=== PATIENT | female | born 1970 | race Caucasian/White ===

== ENCOUNTER → 2017-03-20 | Outpatient (CLI) | payer BC ==
--- NOTE | 2017-03-24 10:17 | MM ---
Reason for exam: screening (asymptomatic). Last mammogram was performed 2 years ago. History: Family history of breast cancer in maternal aunt and breast cancer in paternal grandmother. Benign excisional biopsy of the right breast, 1991. Taking hormonal contraceptives for 7 years beginning at age 20. Physical Findings: A clinical breast exam by your physician is recommended on an annual basis and results should be correlated with mammographic findings. MG Screening Mammo w CAD Bilateral CC and MLO view(s) were taken. Prior study comparison: March 12, 2015, bilateral MG 3d screening mammo w/cad. February 17, 2014, bilateral MG screening mammo w CAD. The breast tissue is heterogeneously dense. This may lower the sensitivity of mammography. Finding: There are round, linear arranged calcifications in the upper quadrant, posterior position of the right breast on MLO view. New finding since March 12, 2015 and February 17, 2014. ASSESSMENT: Incomplete: need additional imaging evaluation, BI-RAD 0 RECOMMENDATION: Special view mammogram of the right breast. [facility] will attempt to contact patient to return for supplemental views.
== END | disposition home or self-care (01) ==
LOC: RADMAMWWP 15:07
PROVIDERS: ATTEND Family Medicine
DX: Z12.31 Encounter for screening mammogram for malignant neoplasm of breast (principal)
CPT/HCPCS: 77067

== ENCOUNTER → 2017-04-01 | Outpatient (CLI) | payer BC ==
--- NOTE | 2017-04-02 07:53 | MM ---
Reason for exam: additional evaluation requested from abnormal screening. Last mammogram was performed less than 1 month ago. History: Family history of breast cancer in maternal aunt and breast cancer in paternal grandmother. Benign excisional biopsy of the right breast, 1991. Taking hormonal contraceptives for 7 years beginning at age 20. Physical Findings: Nurse did not find any significant physical abnormalities on exam. MG Work Up Mamm w CAD RT CC and MLO view(s) were taken of the right breast. Prior study comparison: March 20, 2017, bilateral MG screening mammo w CAD. March 12, 2015, bilateral MG 3d screening mammo w/cad. Finding: There are typically benign round, grouped/clustered calcifications in the upper outer quadrant, posterior position of the right breast not significantly changed from 03/02/17. ASSESSMENT: Probably benign, BI-RAD 3 RECOMMENDATION: Follow-up diagnostic mammogram of the right breast in 6 months.
== END | disposition home or self-care (01) ==
LOC: RADMAMWWP 15:31
PROVIDERS: ATTEND Family Medicine
DX: R92.8 Other abnormal and inconclusive findings on diagnostic imaging of breast (principal); Z80.3 Family history of malignant neoplasm of breast
CPT/HCPCS: 77065

== ENCOUNTER 2017-09-10 23:36 | Emergency (ER) | payer BC ==
[2017-09-11] MEDS ORDERED: AMOXIC-POT CLAV 875MG STARTER 2 EACH TABLET ONE (00:27)
--- NOTE | 2017-09-16 02:27 | CDI ---
Documentation Clarification OP Dear Homer Mcfarland, PAC Please provide clinical impression. Thank you, Jackelyn Schafer Machine Rug Cleaner If you have any questions, please contact Core Analyst at [phone] DX: dog bite MTDD
== END 2017-09-11 00:35 | disposition home or self-care (01) ==
LOC: EC 23:36
DX: S61.452A Open bite of left hand, initial encounter (principal); F17.200 Nicotine dependence, unspecified, uncomplicated; Z88.2 Allergy status to sulfonamides; W54.0XXA Bitten by dog, initial encounter
CPT/HCPCS: 99283

== ENCOUNTER 2017-10-23 10:59 | Emergency (ER) | payer BC ==
[2017-10-23 11:04] VITALS: BP 123/70; PULSE 95; RESP 18; TEMP 98.5
--- NOTE | 2017-10-23 11:15 | ED ---
Skin/Abscess/FB HPI - General Chief complaint: Skin/Abscess/Foreign Body Stated complaint: boil on groin Time Seen by Provider: 10/23/17 11:05 Source: patient Mode of arrival: ambulatory Limitations: no limitations - History of Present Illness Initial comments: Is a 47-year-old female who presents here department for a right inguinal abscess. She states it started a couple of days ago. She states that she did have a similar episode in February 2017.. She was told by Dr. Thomas that she may have a mild case of hidradenitis or purpura. She states that she called his office today and was instructed to come to the emergency department to have Dr. Thomas paged so that he could evaluate her. The patient denies any fevers or chills. No drainage from the wound. Denies any other acute complaints. - Related Data Home Medications Medication Instructions Recorded Confirmed Albuterol Inhaler [Ventolin Hfa 1 - 2 puff INHALATION RT-Q6H PRN 10/23/17 Inhaler] Aspirin/Acetaminophen/Caffeine 1 tab PO Q6H PRN 10/23/17 10/23/17 [Excedrin Migraine Caplet] Eye Lubricant Combination No.1 1 applic BOTH EYES DAILY PRN 10/23/17 10/23/17 [Freshkote] Fexofenadine/Pseudoephedrine 600 mg PO DAILY PRN 10/23/17 10/23/17 [Danyelle-D 12 Hour Tablet] Ibuprofen [Advil] 600 - 800 mg PO Q6HR PRN 10/23/17 10/23/17 Multivitamins, Thera [Multivitamin 1 tab PO DAILY 10/23/17 10/23/17 (formulary)] buPROPion HCL [Wellbutrin XL] 150 mg PO BID 10/23/17 10/23/17 Previous Rx's Medication Instructions Recorded Clindamycin HCl 600 mg PO TID #42 cap 10/23/17 Allergies Allergy/AdvReac Type Severity Reaction Status Date / Time Sulfa (Sulfonamide Allergy Unknown Verified 10/23/17 11:15 Antibiotics) Childhood gluten AdvReac Nausea & Verified 10/23/17 11:15 Vomiting & Diarrhea Review of Systems ROS Statement: Those systems with pertinent positive or pertinent negative responses have been documented in the HPI. ROS Other: All systems not noted in ROS Statement are negative. Past Medical History Additional Past Medical History / Comment(s): enometriosis History of Any Multi-Drug Resistant Organisms: None Reported Additional Past Surgical History / Comment(s): lump removed from right breast, laproscopy surgery Past Psychological History: Anxiety Smoking Status: Current every day smoker Past Alcohol Use History: Occasional Past Drug Use History: None Reported General Exam - General Exam Comments Initial Comments: Constitutional: Awake alert Appears comfortable Head: Normocephalic atraumatic Eyes: no conjunctival injection No scleral icterus EOMI Neck: No JVD Supple Heart: Regular rate rhythm normal S1-S2 no murmurs Lungs: Clear to auscultation bilaterally No wheezing No rales Abdomen: Soft nondistended nontender Skin: There is a 1-2 cm abscess over the right lateral mons pubis area. There is no open tract or draining. There is fluctuance at the center and surrounding erythema with mild induration. There is tenderness to palpation over this area. Extremities: Non edematous DP pulses intact Radial pulses intact Neuro: A&Ox3 No focal neurologic deficits Psych: Appropriate mood and affect Limitations: no limitations Course Vital Signs 10/23/17 11:00 Temperature 98.5 F Pulse Rate 95 Respiratory 18 Rate Blood Pressure 123/70 O2 Sat by Pulse 95 Oximetry - Reevaluation(s) Reevaluation #1: 10/23/17 11:[address] Thomas about the patient and he stated that he would prefer me to perform the incision and drainage because he is currently busy in the OR. Procedures - Incision & Drainage Consent Obtained: verbal consent Indication: abscess Site: other Size (cm): 2 (R inguinal) Amount (mLs): 3 I&D Cleaning Method: Chloroprep Sterile Field Used?: Yes Scalpel Used: #11 Needle Aspiration Performed?: No Irrigation Performed?: No I&D Drainage Obtained: Pus, Blood Packing: Iodoform Culture Obtained?: Yes Patient Tolerated Procedure: well Medical Decision Making - Medical Decision Making This is a 47-year-old female who presents emergency department for an abscess. Incision and drainage was performed at bedside and wound cultures were sent. The patient tolerated the procedure well. She will be placed on clindamycin for 7 days. Told to follow-up with Dr. Thomas in his office. Can return for any worsening or changing symptoms. All questions answered. Disposition Clinical Impression: Abscess Disposition: HOME SELF-CARE Condition: Stable Instructions: Abscess Incision and Drainage (ED), Abscess (ED) Prescriptions: Clindamycin HCl 600 mg PO TID #42 cap Is patient prescribed a controlled substance at d/c from ED?: No Referrals: Lesvia Correa MD [Primary Care Provider] - 1-2 days Ervin Correa MD [Medical Doctor] - 1-2 days
[2017-10-23] MEDS ORDERED: LIDOCAINE 1% INJ 10MG/ML (20 ML MDV) SQ ONE (11:20)
== END 2017-10-23 11:54 | disposition home or self-care (01) ==
LOC: EC 10:59
DX: L02.214 Cutaneous abscess of groin (principal); F41.9 Anxiety disorder, unspecified; F17.200 Nicotine dependence, unspecified, uncomplicated; Z79.899 Other long term (current) drug therapy; Z88.2 Allergy status to sulfonamides; Z91.048 Other nonmedicinal substance allergy status
CPT/HCPCS: 87070; 87205; 99283; 10060; J2001

== ENCOUNTER → 2018-10-29 | Outpatient (CLI) | payer BC ==
--- NOTE | 2018-10-29 11:54 | MM ---
Reason for exam: additional evaluation requested from prior study. Last mammogram was performed 1 year and 7 months ago. History: Family history of breast cancer in maternal aunt and breast cancer in paternal grandmother. Benign excisional biopsy of the right breast, 1991. Taking hormonal contraceptives for 7 years beginning at age 20. Physical Findings: Nurse did not find any significant physical abnormalities on exam. MG 3D Diag Mammo W/Cad FRANCISCO JAVIER Bilateral CC and MLO view(s) were taken. Prior study comparison: April 01, 2017, right breast MG work up mamm w CAD RT. March 20, 2017, bilateral MG screening mammo w CAD. The breast tissue is heterogeneously dense. This may lower the sensitivity of mammography. Left upper outer quadrant posterior depth calcifications are stable from 2018 and probably benign. 1 year follow up diagnostic will establish 2 years of stability. Right upper outer quadrant far posterior depth 4mm mass stable back to 2016. These results were verbally communicated with the patient and result sheet given to the patient on 10/29/18. ASSESSMENT: Probably benign, BI-RAD 3 RECOMMENDATION: Follow-up diagnostic mammogram of both breasts in 1 year.
== END | disposition home or self-care (01) ==
LOC: RADMAMWWP 09:50
PROVIDERS: ATTEND Family Medicine
DX: R92.8 Other abnormal and inconclusive findings on diagnostic imaging of breast (principal)
CPT/HCPCS: 77062; 77066

== ENCOUNTER → 2019-12-14 | Outpatient (CLI) | payer BC ==
--- NOTE | 2019-12-19 14:39 | MM ---
Reason for exam: additional evaluation requested from prior study. Last mammogram was performed 1 year and 1 month ago. History: Family history of breast cancer in maternal aunt and breast cancer in paternal grandmother. Benign excisional biopsy of the right breast, 1991. Taking hormonal contraceptives for 7 years beginning at age 20. Physical Findings: Nurse did not find any significant physical abnormalities on exam. MG 3D Diag Mammo W/Cad FRANCISCO JAVIER Bilateral CC and MLO view(s) were taken. LM, CC with magnification, and LM with magnification view(s) were taken of the right breast. Prior study comparison: October 29, 2018, bilateral MG 3d diag mammo w/cad FRANCISCO JAVIER. April 01, 2017, right breast MG work up mamm w CAD RT. The breast tissue is heterogeneously dense. This may lower the sensitivity of mammography. Finding: There are grouped/clustered calcifications in the upper outer quadrant, posterior position of the right breast 9.6cm from the nipple. Increase in number of calcifications since October 29, 2018 and April 01, 2017. These results were verbally communicated with the patient and result sheet given to the patient on 12/14/19. ASSESSMENT: Suspicious, BI-RAD 4 RECOMMENDATION: Stereotactic core biopsy of the right breast. Called Dr. Lesvia Correa's office with mammographic findings and has scheduled an appointment for the patient for 01/18/20 at 4:[address] Correa. Biopsy scheduled for 12/26/19 at 7:00. PRELIMINARY REPORT CALLED AND FAXED TO DR. CORREA ON 12/19/19.
== END | disposition home or self-care (01) ==
LOC: RADMAMWWP 11:02
PROVIDERS: ATTEND Family Medicine
DX: R92.8 Other abnormal and inconclusive findings on diagnostic imaging of breast (principal)
CPT/HCPCS: 77062; 77066

== ENCOUNTER → 2019-12-26 | Day surgery (SDC) | payer BC ==
[2019-12-26 07:26] VITALS: RESP 16; TEMP 98.1
[2019-12-26 08:59] VITALS: BP 122/82; PULSE 71
--- NOTE | 2019-12-26 09:12 | MM ---
EXAMINATION TYPE: MG stereo VAD BX RT DATE OF EXAM: 12/26/2019 COMPARISON: Prior mammogram December 14, 2019 and older mammograms. CLINICAL HISTORY: Abnormal mammogram TECHNIQUE: Stereotactic guided core biopsy of right breast. FINDINGS: The procedure of stereotactic guided core biopsy was explained to the patient. Benefits, a lternatives, and risks were discussed. An informed consent was then obtained. The [facility] pathway for biopsy was chosen. Shortness pathway was lateral approach. I performed the localization then performed the remainder of the procedure. Overlying skin is cleansed with Betadine . Lidocaine is used as a metastatic into the skin and subcutaneous tissue. Lidocaine with epinephrine is used as anesthetic into the deeper tissue up to area of concern and during sampling. A vacuum ass isted biopsy gun was used to obtain multiple core samples. The patient tolerated the procedure well without any immediate complication. The patient was kept in the radiology department for short stay after the procedure and then discharged home in stable condi tion. Targeted calcifications are identified in specimen mammogram. Post biopsy mammogram shows the clip to appear in satisfactory position relative to the targeted area of concern on the preprocedure images. No residual calcifications are identified. IMPRESSION: SUCCESSFUL, UNCOMPLICATED STEREOTACTIC GUIDED CORE BIOPSY OF AREA OF CONCERN IN THE RIGHT BREAST, FUL L PATHOLOGY RESULTS TO FOLLOW. Intermediate index of suspicion noted at time of procedure.
== END ==
LOC: RADMAMWWP 07:05
PROVIDERS: ATTEND Surgery
DX: N60.11 Diffuse cystic mastopathy of right breast (principal); R89.7 Abnormal histological findings in specimens from other organs, systems and tissues; Z85.3 Personal history of malignant neoplasm of breast; Z98.890 Other specified postprocedural states; Z98.82 Breast implant status; Z88.2 Allergy status to sulfonamides; Z88.5 Allergy status to narcotic agent; Z80.3 Family history of malignant neoplasm of breast
CPT/HCPCS: 88305; 19081; A4648; J2001

== ENCOUNTER 2020-03-10 14:39 | Emergency (ER) | payer BC ==
[2020-03-10 14:43] VITALS: TEMP 98.3
[2020-03-10] MEDS ORDERED: KETOROLAC 15 MG/ML 1 ML VIAL IVP STA (15:06)
[2020-03-10] MEDS ORDERED: SODIUM CHLORIDE 0.9% 1,000 ML IV STA (15:06)
[2020-03-10] MEDS ORDERED: PANTOPRAZOLE 40 MG/10 ML VIAL IVP STA (15:06)
--- NOTE | 2020-03-10 15:19 | ED ---
Abdominal Pain HPI - General Chief Complaint: Abdominal Pain Stated Complaint: R Side Abd Pain Time Seen by Provider: 03/10/20 14:45 Source: patient Mode of arrival: ambulatory Limitations: no limitations - History of Present Illness Initial Comments: Patient is a 50-year-old female presenting to the emergency Department with complaints of right upper quadrant pain 3 days. Patient states she noticed the pain about 3 days ago, it was intermittent. Patient states throughout the day it seemed to go away, the next day and into today the pain has been continuous. She states she does have some radiation of the pain to the epigastric and sometimes the left upper quadrant as well. She does admit to some mild nausea 2 days ago, no vomiting, no diarrhea. No nause today. She admits to history of 2 laparoscopies for endometriosis, no other abdominal surgeries. She denies any fever or chills, no chest pain or shortness of breath. She has no further complaints at this time. Upon arrival to the ER, her vital signs are stable. - Related Data Home Medications Medication Instructions Recorded Confirmed Fexofenadine/Pseudoephedrine 600 mg PO DAILY PRN 10/23/17 12/26/19 [Danyelle-D 12 Hour Tablet] Terbinafine [LamISIL] 250 mg PO DAILY 12/16/19 12/26/19 Balance Estrogen Vitamin 2 tab PO DAILY 03/10/20 03/10/20 Beef Thyroid Vitamin 1 tab PO DAILY 03/10/20 03/10/20 Bovine Adrenal Vitamin 2 tab PO DAILY 03/10/20 03/10/20 Previous Rx's Medication Instructions Recorded Dicyclomine [Bentyl] 20 mg PO TID #20 tablet 03/10/20 Allergies Allergy/AdvReac Type Severity Reaction Status Date / Time Sulfa (Sulfonamide Allergy Unknown Verified 03/10/20 16:41 Antibiotics) Childhood gluten AdvReac Nausea & Verified 03/10/20 16:41 Vomiting & Diarrhea hydrocodone [From Vicodin] AdvReac Nausea Verified 03/10/20 16:41 morphine AdvReac Nausea Verified 03/10/20 16:41 Review of Systems ROS Statement: Those systems with pertinent positive or pertinent negative responses have been documented in the HPI. ROS Other: All systems not noted in ROS Statement are negative. Past Medical History Additional Past Medical History / Comment(s): endometriosis History of Any Multi-Drug Resistant Organisms: None Reported Past Surgical History: Breast Surgery Additional Past Surgical History / Comment(s): benign excisional biopsy right breast 1992, laproscopy surgery Past Anesthesia/Blood Transfusion Reactions: Previous Problems w/ Anesthesia Additional Past Anesthesia/Blood Transfusion Reaction / Comment(s): "Hard time waking up" after breast excisional biopsy 1991 Past Psychological History: Anxiety, Depression Smoking Status: Current every day smoker Past Alcohol Use History: Occasional Past Drug Use History: None Reported General Exam - General Exam Comments Initial Comments: GENERAL: Patient is well-developed and well-nourished. Patient is nontoxic and in no acute distress. HEAD: Atraumatic, normocephalic. EYES: Pupils equal round and reactive to light, extraocular movements intact, sclera anicteric, conjunctiva are normal. Eyelids were unremarkable. ENT: TMs normal, nares patent, oropharynx clear without exudates. Moist mucous membranes. NECK: Normal range of motion, supple without lymphadenopathy or JVD. LUNGS: Unlabored respirations. Breath sounds clear to auscultation bilaterally and equal. No wheezes rales or rhonchi. HEART: Regular rate and rhythm without murmurs, rubs or gallops. ABDOMEN: Tender to palpation epigastric and right upper quadrant. Soft, normoactive bowel sounds. No guarding, no rebound. No masses appreciated. : Deferred MUSCULOSKELETAL: Normal extremities with adequate strength and normal range of motion, no pitting or edema. No clubbing or cyanosis. NEUROLOGICAL: Patient is alert and oriented x 3. Motor and sensory are also intact. Cranial nerves II through XII grossly intact. Symmetrical smile. Normal speech, normal gait. PSYCH: Normal mood, normal affect. SKIN: Warm, Dry, normal turgor, no rashes or lesions noted. Limitations: no limitations Course Vital Signs 03/10/20 03/10/20 14:40 16:40 Temperature 98.3 F Pulse Rate 69 71 Respiratory 20 18 Rate Blood Pressure 121/75 132/83 O2 Sat by Pulse 96 98 Oximetry Medical Decision Making - Medical Decision Making Patient is a 50-year-old female here for right upper quadrant pain 3 days. Positive nausea, no vomiting, no fevers, no diarrhea. History of 2 laparoscopies for endometriosis, no other abdominal surgeries. Her vital signs are stable. She denies any chest pain or shortness of breath. Labs show a very slight white count at 13.1, rest of labs are unremarkable, normal lactate, normal bilirubin. Her urine shows no evidence of infection. Ultrasound of the gallbladder shows no stones present, no dilation of the CBD, right kidney is normal. The liver does have a lesion consistent with a benign cyst and a hemangioma. I did recommend the patient to have an EKG however patient declined stating that she does not have chest pain and no heart issues. Patient was given some fluids and Toradol resting comfortably in the ER. I discussed these findings with her. Patient states she has seen Dr. Correa in the past and I did recommend follow-up with him if her symptoms persist. Her symptoms are most likely related to biliary colic. Patient states her pain does seem to increase after she is eating. She is stable for discharge at this time. Patient is in agreement with this plan of care. Return parameters were discussed with the patient she verbalizes understanding. Case discussed with Dr. Hadley. - Lab Data Result diagrams: 03/10/20 15:30 03/10/20 15:30 Lab Results 03/10/20 03/10/20 03/10/20 Range/Units 15:30 15:30 15:30 WBC 13.1 H (3.8-10.6) k/uL RBC 4.79 (3.80-5.40) m/uL Hgb 14.7 (11.4-16.0) gm/dL Hct 43.3 (34.0-46.0) % MCV 90.4 (80.0-100.0) fL MCH 30.6 (25.0-35.0) pg MCHC 33.9 (31.0-37.0) g/dL RDW 12.5 (11.5-15.5) % Plt Count 302 (150-450) k/uL MPV 7.2 Neutrophils % 82 % Lymphocytes % 10 % Monocytes % 5 % Eosinophils % 1 % Basophils % 1 % Neutrophils # 10.8 H (1.3-7.7) k/uL Lymphocytes # 1.3 (1.0-4.8) k/uL Monocytes # 0.7 (0-1.0) k/uL Eosinophils # 0.1 (0-0.7) k/uL Basophils # 0.1 (0-0.2) k/uL PT 10.5 (9.0-12.0) sec INR 1.0 (<1.2) APTT 22.8 (22.0-30.0) sec Sodium (137-145) mmol/L Potassium (3.5-5.1) mmol/L Chloride (98-107) mmol/L Carbon Dioxide (22-30) mmol/L Anion Gap mmol/L BUN (7-17) mg/dL Creatinine (0.52-1.04) mg/dL Est GFR (CKD-EPI)AfAm (>60 ml/min/1.73 sqM) Est GFR (CKD-EPI)NonAf (>60 ml/min/1.73 sqM) Glucose (74-99) mg/dL Plasma Lactic Acid Luciano (0.7-2.0) mmol/L Calcium (8.4-10.2) mg/dL Total Bilirubin (0.2-1.3) mg/dL AST (14-36) U/L ALT (4-34) U/L Alkaline Phosphatase (38-126) U/L Total Protein (6.3-8.2) g/dL Albumin (3.5-5.0) g/dL Amylase (30-110) U/L Lipase (23-300) U/L Urine Color Yellow Urine Appearance Clear (Clear) Urine pH 5.5 (5.0-8.0) Ur Specific [place] 1.030 (1.001-1.035) Urine Protein Trace H (Negative) Urine Glucose (UA) Negative (Negative) Urine Ketones Negative (Negative) Urine Blood Negative (Negative) Urine Nitrite Negative (Negative) Urine Bilirubin Negative (Negative) Urine Urobilinogen 2.0 (<2.0) mg/dL Ur Leukocyte Esterase Negative (Negative) Urine HCG, Qual (Not Detectd) 03/10/20 03/10/20 03/10/20 Range/Units 15:30 15:30 15:30 WBC (3.8-10.6) k/uL RBC (3.80-5.40) m/uL Hgb (11.4-16.0) gm/dL Hct (34.0-46.0) % MCV (80.0-100.0) fL MCH (25.0-35.0) pg MCHC (31.0-37.0) g/dL RDW (11.5-15.5) % Plt Count (150-450) k/uL MPV Neutrophils % % Lymphocytes % % Monocytes % % Eosinophils % % Basophils % % Neutrophils # (1.3-7.7) k/uL Lymphocytes # (1.0-4.8) k/uL Monocytes # (0-1.0) k/uL Eosinophils # (0-0.7) k/uL Basophils # (0-0.2) k/uL PT (9.0-12.0) sec INR (<1.2) APTT (22.0-30.0) sec Sodium 137 (137-145) mmol/L Potassium 4.6 (3.5-5.1) mmol/L Chloride 106 (98-107) mmol/L Carbon Dioxide 25 (22-30) mmol/L Anion Gap 6 mmol/L BUN 18 H (7-17) mg/dL Creatinine 0.61 (0.52-1.04) mg/dL Est GFR (CKD-EPI)AfAm >90 (>60 ml/min/1.73 sqM) Est GFR (CKD-EPI)NonAf >90 (>60 ml/min/1.73 sqM) Glucose 116 H (74-99) mg/dL Plasma Lactic Acid Luciano 0.8 (0.7-2.0) mmol/L Calcium 9.3 (8.4-10.2) mg/dL Total Bilirubin 0.3 (0.2-1.3) mg/dL AST 23 (14-36) U/L ALT 18 (4-34) U/L Alkaline Phosphatase 65 (38-126) U/L Total Protein 6.7 (6.3-8.2) g/dL Albumin 4.1 (3.5-5.0) g/dL Amylase 61 (30-110) U/L Lipase 65 (23-300) U/L Urine Color Urine Appearance (Clear) Urine pH (5.0-8.0) Ur Specific [place] (1.001-1.035) Urine Protein (Negative) Urine Glucose (UA) (Negative) Urine Ketones (Negative) Urine Blood (Negative) Urine Nitrite (Negative) Urine Bilirubin (Negative) Urine Urobilinogen (<2.0) mg/dL Ur Leukocyte Esterase (Negative) Urine HCG, Qual Not Detected (Not Detectd) Disposition Clinical Impression: Right upper quadrant abdominal pain, Biliary colic Disposition: HOME SELF-CARE Condition: Stable Instructions (If sedation given, give patient instructions): Abdominal Pain (ED) Additional Instructions: Please return to the Emergency Department if symptoms worsen or any other concerns. Trial of Bentyl for spasms. Drink plenty of water, limit fatty foods. Follow up with your surgeon or regular doctor as discussed. Prescriptions: Dicyclomine [Bentyl] 20 mg PO TID #20 tablet Is patient prescribed a controlled substance at d/c from ED?: No Referrals: Lesvia Correa MD [Primary Care Provider] - 1-2 days Ervin Correa MD [Medical Doctor] - 1-2 days
[2020-03-10 15:35] LABS: Basophils # (A) 0.1 k/uL (0-0.2); Basophils % (A) 1 %; Eosinophils # (A) 0.1 k/uL (0-0.7); Eosinophils % (A) 1 %; HCT 43.3 % (34.0-46.0); HGB 14.7 gm/dL (11.4-16.0); Lymphocytes # (A) 1.3 k/uL (1.0-4.8); Lymphocytes % (A) 10 %; MCH 30.6 pg (25.0-35.0); MCHC 33.9 g/dL (31.0-37.0); MCV 90.4 fL (80.0-100.0); Mean Platelet Volume 7.2; Monocytes # (A) 0.7 k/uL (0-1.0); Monocytes % (A) 5 %; Neutrophils # (A) 10.8 k/uL (1.3-7.7); Neutrophils % (A) 82 %; Platelet Count 302 k/uL (150-450); RBC 4.79 m/uL (3.80-5.40); RDW 12.5 % (11.5-15.5); WBC 13.1 k/uL (3.8-10.6)
[2020-03-10 15:43] LABS: Appearance,Urine Clear (Clear); Bilirubin,Urine Negative (Negative); Blood,Urine Negative (Negative); Color,Urine Yellow; Glucose,Urine (UA) Negative (Negative); Ketones,Urine Negative (Negative); Leukocyte Esterase,Urine Negative (Negative); Nitrite,Urine Negative (Negative); PH, Urine 5.5 (5.0-8.0); Protein,Urine Trace (Negative)
[2020-03-10 15:47] LABS: ALT 18 U/L (4-34); AST 23 U/L (14-36); African American GFR (CKD) >90 (>60 ml/min/1.73 sqM); Albumin 4.1 g/dL (3.5-5.0); Alkaline Phosphatase 65 U/L (38-126); Amylase 61 U/L (30-110); Anion Gap 6 mmol/L; Blood Urea Nitrogen 18 mg/dL (7-17); Calcium 9.3 mg/dL (8.4-10.2); Carbon Dioxide 25 mmol/L (22-30); Chloride 106 mmol/L (98-107); Glucose 116 mg/dL (74-99); Lipase 65 U/L (23-300); Non-African American GFR(CKD) >90 (>60 ml/min/1.73 sqM); Potassium 4.6 mmol/L (3.5-5.1); Sodium 137 mmol/L (137-145); Total Bilirubin 0.3 mg/dL (0.2-1.3); Total Protein 6.7 g/dL (6.3-8.2)
[2020-03-10 15:48] LABS: Partial Thromboplastin Time 22.8 sec (22.0-30.0); Prothrombin Time 10.5 sec (9.0-12.0)
--- NOTE | 2020-03-10 16:10 | US ---
EXAMINATION TYPE: US gallbladder DATE OF EXAM: 03/10/2020 COMPARISON: NONE CLINICAL HISTORY: RUQ pain x 3 days. EXAM MEASUREMENTS: Liver Length: 10.0 cm Gallbladder Wall: 0.3 cm CBD: 0.6 cm Right Kidney: 9.4 x 4.8 x 4.6 cm Pancreas: visualized portions wnl Liver: bi lobed cyst measures 2.4 x 1.9 x 1.9 cm, and echogenic non vascular lesion measuring 1.7 x 1.3 x 1.6 cm Gallbladder: No stones seen Evidence for sonographic Rodrigues's sign: No CBD: measures 0.6 cm Right Kidney: No hydronephrosis or masses seen IMPRESSION: No acute abnormality. Hepatic lesions, compatible with benign cyst and hemangioma. Confirmation with CT or MRI may be obtai calvin as clinically indicated.
[2020-03-10 16:42] VITALS: BP 132/83; PULSE 71; RESP 18
== END 2020-03-10 16:43 | disposition home or self-care (01) ==
LOC: EC 14:39
DX: K80.50 Calculus of bile duct without cholangitis or cholecystitis without obstruction (principal); F17.200 Nicotine dependence, unspecified, uncomplicated; Z88.2 Allergy status to sulfonamides; Z88.5 Allergy status to narcotic agent; Z91.048 Other nonmedicinal substance allergy status
CPT/HCPCS: 36415; 80053; 82150; 83605; 83690; 85025; 85610; 85730; 81003; 81025; 76705; 99284; 96374; 96375; 96361; J1885; C9113

== ENCOUNTER → 2020-06-25 | Outpatient (CLI) | payer BC ==
--- NOTE | 2020-06-25 12:14 | MM ---
Reason for exam: follow-up at short interval from prior study. Last mammogram was performed 6 months ago. History: Family history of breast cancer in maternal aunt and breast cancer in paternal grandmother. Benign MG stereo VAD BX RT of the right breast, December 26, 2019. Benign excisional biopsy of the right breast, 1991. Taking hormonal contraceptives for 7 years beginning at age 20. Physical Findings: Nurse did not find any significant physical abnormalities on exam. MG 3D Diag Mammo W/Cad RT CC and MLO view(s) were taken of the right breast. Prior study comparison: December 14, 2019, bilateral MG 3d diag mammo w/cad FRANCISCO JAVIER. October 29, 2018, bilateral MG 3d diag mammo w/cad FRANCISCO JAVIER. The breast tissue is heterogeneously dense. This may lower the sensitivity of mammography. Previous mammotome biopsy in the right breast. These results were verbally communicated with the patient and result sheet given to the patient on 06/25/20. ASSESSMENT: Benign, BI-RAD 2 RECOMMENDATION: Routine screening mammogram of both breasts in 6 months. Back on schedule for November 2020.
== END | disposition home or self-care (01) ==
LOC: RADMAMWWP 10:30
PROVIDERS: ATTEND Surgery
DX: R92.2 Inconclusive mammogram (principal)
CPT/HCPCS: 77061; 77065

== ENCOUNTER → 2020-12-14 | Outpatient (CLI) | payer BC ==
--- NOTE | 2020-12-17 08:58 | MM ---
Reason for exam: screening (asymptomatic). Last mammogram was performed 6 months ago. History: Patient is postmenopausal. Family history of breast cancer in maternal aunt and breast cancer in paternal grandmother. Benign MG stereo VAD BX RT of the right breast, December 26, 2019. Benign excisional biopsy of the right breast, 1991. Taking hormonal contraceptives for 7 years beginning at age 20. Physical Findings: A clinical breast exam by your physician is recommended on an annual basis and results should be correlated with mammographic findings. MG 3D Screening Mammo W/Cad Bilateral CC and MLO view(s) were taken. Prior study comparison: June 25, 2020, right breast MG 3d diag mammo w/cad RT. December 14, 2019, bilateral MG 3d diag mammo w/cad FRANCISCO JAVIER. The breast tissue is heterogeneously dense. This may lower the sensitivity of mammography. Focal asymmetry upper outer left breast. This finding is changed when compared with previous exams. ASSESSMENT: Incomplete: need additional imaging evaluation, BI-RAD 0 RECOMMENDATION: Special view mammogram of the left breast. If lesion persists on supplemental views, image directed ultrasound is recommended. [facility] will attempt to contact patient to return for supplemental views and ultrasound if indicated.
== END | disposition home or self-care (01) ==
LOC: RADMAMWWP 09:39
PROVIDERS: ATTEND Surgery
DX: Z12.31 Encounter for screening mammogram for malignant neoplasm of breast (principal)
CPT/HCPCS: 77063; 77067

== ENCOUNTER → 2020-12-26 | Outpatient (CLI) | payer BC ==
--- NOTE | 2020-12-27 10:28 | MM ---
Reason for exam: additional evaluation requested from abnormal screening. Last mammogram was performed less than 1 month ago. History: Patient is postmenopausal. Family history of breast cancer in maternal aunt and breast cancer in paternal grandmother. Benign MG stereo VAD BX RT of the right breast, December 26, 2019. Benign excisional biopsy of the right breast, 1991. Taking hormonal contraceptives for 7 years beginning at age 20. Physical Findings: Nurse did not find any significant physical abnormalities on exam. MG 3D Work Up W/Cad LT Spot compression CC, spot compression MLO, and ML view(s) were taken of the left breast. Prior study comparison: December 14, 2020, bilateral MG 3d screening mammo w/cad. June 25, 2020, right breast MG 3d diag mammo w/cad RT. December 14, 2019, bilateral MG 3d diag mammo w/cad FRANCISCO JAVIER. October 29, 2018, bilateral MG 3d diag mammo w/cad FRANCISCO JAVIER. The breast tissue is heterogeneously dense. This may lower the sensitivity of mammography. The superior asymmetric density disperses on additional views. Given the appearance on screening, a precautionary 6 month follow up is recommended. These results were verbally communicated with the patient and result sheet given to the patient on 12/26/20. ASSESSMENT: Probably benign, BI-RAD 3 RECOMMENDATION: Follow-up diagnostic mammogram of the left breast in 6 months.
== END | disposition home or self-care (01) ==
LOC: RADMAMWWP 15:39
PROVIDERS: ATTEND Surgery
DX: R92.8 Other abnormal and inconclusive findings on diagnostic imaging of breast (principal)
CPT/HCPCS: 77061; 77065

== ENCOUNTER 2021-02-12 23:49 | Emergency (ER) | payer BC ==
[2021-02-13] MEDS ORDERED: ASPIRIN 81 MG PO STA (00:05)
[2021-02-13 00:07] VITALS: TEMP 98.2
--- NOTE | 2021-02-13 00:09 | ED ---
General Adult HPI - General Stated complaint: Chest Pain Time Seen by Provider: 02/13/21 00:03 - History of Present Illness Initial comments: 51 year-old female patient presents to the emergency department for evaluation of central chest pain. States it is pinching/burning sensation. Denies radiation to back or jaw. Denies any nausea, vomiting, and sweating. States she had two previous episodes about 1-2 weeks ago. Denies history of cardiac disease. Denies history of smoking. Family history of CAD in mother and grandmother. She does smoke cigarettes. - Related Data Home Medications Medication Instructions Recorded Confirmed Fexofenadine/Pseudoephedrine 600 mg PO BID PRN 10/23/17 03/10/20 [Danyelle-D 12 Hour Tablet] Terbinafine [LamISIL] 250 mg PO HS 12/16/19 03/10/20 Balance Estrogen Vitamin 2 tab PO DAILY 03/10/20 03/10/20 Beef Thyroid Vitamin 1 tab PO DAILY 03/10/20 03/10/20 Bovine Adrenal Vitamin 2 tab PO DAILY 03/10/20 03/10/20 Previous Rx's Medication Instructions Recorded Dicyclomine [Bentyl] 20 mg PO TID #20 tablet 03/10/20 Allergies Allergy/AdvReac Type Severity Reaction Status Date / Time Sulfa (Sulfonamide Allergy Unknown Verified 02/13/21 00:06 Antibiotics) Childhood gluten AdvReac Nausea & Verified 02/13/21 00:06 Vomiting & Diarrhea hydrocodone [From Vicodin] AdvReac Nausea Verified 02/13/21 00:06 morphine AdvReac Nausea Verified 02/13/21 00:06 Review of Systems ROS Statement: Those systems with pertinent positive or pertinent negative responses have been documented in the HPI. ROS Other: All systems not noted in ROS Statement are negative. Past Medical History Additional Past Medical History / Comment(s): endometriosis History of Any Multi-Drug Resistant Organisms: None Reported Past Surgical History: Breast Surgery Additional Past Surgical History / Comment(s): benign excisional biopsy right breast 1991, laproscopy surgery Past Anesthesia/Blood Transfusion Reactions: Previous Problems w/ Anesthesia Additional Past Anesthesia/Blood Transfusion Reaction / Comment(s): "Hard time waking up" after breast excisional biopsy 1991 Past Psychological History: Anxiety, Depression Smoking Status: Current every day smoker Past Alcohol Use History: Occasional Past Drug Use History: None Reported General Exam General appearance: alert, in no apparent distress, other (This is a well developed, well nourished adult female in no acute distress. ) Eye exam: Present: normal appearance, PERRL, EOMI. Absent: scleral icterus, conjunctival injection, periorbital swelling ENT exam: Present: normal exam, normal oropharynx, mucous membranes moist Respiratory exam: Present: normal lung sounds bilaterally. Absent: respiratory distress, wheezes, rales, rhonchi, stridor Cardiovascular Exam: Present: regular rate, normal rhythm, normal heart sounds. Absent: systolic murmur, diastolic murmur, rubs, gallop, clicks GI/Abdominal exam: Present: soft, normal bowel sounds. Absent: distended, tenderness, guarding, rebound, rigid Neurological exam: Present: alert, oriented X3, CN II-XII intact Psychiatric exam: Present: normal affect, normal mood Skin exam: Present: warm, dry, intact, normal color. Absent: rash Course Vital Signs 02/13/21 02/13/21 00:02 04:53 Temperature 98.2 F Pulse Rate 73 71 Respiratory 18 16 Rate Blood Pressure 144/73 116/80 O2 Sat by Pulse 99 100 Oximetry EKG Findings - EKG Comments: EKG Findings:: UG obtained at 00 13 shows normal sinus rhythm with a ventricular rate of 86, [place] interval 136, QRS duration 74, QT 372, QTc 445. No evidence of ST elevation or depression. Medical Decision Making - Medical Decision Making 51 year-old female patient presents for chest pain that started about 30 minutes prior to arrival. Physical exam unremarkable. EKG showed sinus rhythm. Labs normal. Repeat trop is normal. Discharge follow up with the primary care physician for recheck in 1-2 days. Return parameters were discussed in detail. She verbalizes understanding and agrees with this plan. My attending is Dr. Colmenares. - Lab Data Result diagrams: 02/13/21 00:50 02/13/21 00:50 Lab Results 02/13/21 02/13/21 02/13/21 Range/Units 00:50 00:50 00:50 WBC 12.8 H (3.8-10.6) k/uL RBC 4.66 (3.80-5.40) m/uL Hgb 14.3 (11.4-16.0) gm/dL Hct 43.5 (34.0-46.0) % MCV 93.3 (80.0-100.0) fL MCH 30.6 (25.0-35.0) pg MCHC 32.8 (31.0-37.0) g/dL RDW 12.3 (11.5-15.5) % Plt Count 353 (150-450) k/uL MPV 8.0 Neutrophils % 71 % Lymphocytes % 19 % Monocytes % 6 % Eosinophils % 2 % Basophils % 1 % Neutrophils # 9.1 H (1.3-7.7) k/uL Lymphocytes # 2.4 (1.0-4.8) k/uL Monocytes # 0.8 (0-1.0) k/uL Eosinophils # 0.3 (0-0.7) k/uL Basophils # 0.1 (0-0.2) k/uL PT 9.5 (9.0-12.0) sec INR 0.9 (<1.2) APTT 23.1 (22.0-30.0) sec Sodium 139 (137-145) mmol/L Potassium 4.1 (3.5-5.1) mmol/L Chloride 105 (98-107) mmol/L Carbon Dioxide 24 (22-30) mmol/L Anion Gap 10 mmol/L BUN 16 (7-17) mg/dL Creatinine 0.69 (0.52-1.04) mg/dL Est GFR (CKD-EPI)AfAm >90 (>60 ml/min/1.73 sqM) Est GFR (CKD-EPI)NonAf >90 (>60 ml/min/1.73 sqM) Glucose 120 H (74-99) mg/dL Calcium 9.6 (8.4-10.2) mg/dL Magnesium 1.8 (1.6-2.3) mg/dL Total Bilirubin 0.2 (0.2-1.3) mg/dL AST 22 (14-36) U/L ALT 17 (4-34) U/L Alkaline Phosphatase 78 (38-126) U/L Troponin I (0.000-0.034) ng/mL Total Protein 6.6 (6.3-8.2) g/dL Albumin 4.0 (3.5-5.0) g/dL Lipase 99 (23-300) U/L Coronavirus (PCR) (Not Detectd) 12/22/21 12/22/21 12/22/21 Range/Units 00:50 00:50 03:45 WBC (3.8-10.6) k/uL RBC (3.80-5.40) m/uL Hgb (11.4-16.0) gm/dL Hct (34.0-46.0) % MCV (80.0-100.0) fL MCH (25.0-35.0) pg MCHC (31.0-37.0) g/dL RDW (11.5-15.5) % Plt Count (150-450) k/uL MPV Neutrophils % % Lymphocytes % % Monocytes % % Eosinophils % % Basophils % % Neutrophils # (1.3-7.7) k/uL Lymphocytes # (1.0-4.8) k/uL Monocytes # (0-1.0) k/uL Eosinophils # (0-0.7) k/uL Basophils # (0-0.2) k/uL PT (9.0-12.0) sec INR (<1.2) APTT (22.0-30.0) sec Sodium (137-145) mmol/L Potassium (3.5-5.1) mmol/L Chloride (98-107) mmol/L Carbon Dioxide (22-30) mmol/L Anion Gap mmol/L BUN (7-17) mg/dL Creatinine (0.52-1.04) mg/dL Est GFR (CKD-EPI)AfAm (>60 ml/min/1.73 sqM) Est GFR (CKD-EPI)NonAf (>60 ml/min/1.73 sqM) Glucose (74-99) mg/dL Calcium (8.4-10.2) mg/dL Magnesium (1.6-2.3) mg/dL Total Bilirubin (0.2-1.3) mg/dL AST (14-36) U/L ALT (4-34) U/L Alkaline Phosphatase (38-126) U/L Troponin I <0.012 <0.012 (0.000-0.034) ng/mL Total Protein (6.3-8.2) g/dL Albumin (3.5-5.0) g/dL Lipase (23-300) U/L Coronavirus (PCR) Not Detected (Not Detectd) - Radiology Data Radiology results: report reviewed, image reviewed Disposition Clinical Impression: Chest pain Disposition: HOME SELF-CARE Condition: Good Instructions (If sedation given, give patient instructions): Chest Pain (ED) Additional Instructions: Follow-up with your primary care physician for recheck as soon as possible. Discuss referral to cardiology. Return for any new, worsening, or concerning symptoms. Is patient prescribed a controlled substance at d/c from ED?: No Referrals: Lesvia Correa MD [Primary Care Provider] - 1-2 days
[2021-02-13 01:14] LABS: ALT 17 U/L (4-34); AST 22 U/L (14-36); African American GFR (CKD) >90 (>60 ml/min/1.73 sqM); Alkaline Phosphatase 78 U/L (38-126); Anion Gap 10 mmol/L; Blood Urea Nitrogen 16 mg/dL (7-17); Calcium 9.6 mg/dL (8.4-10.2); Carbon Dioxide 24 mmol/L (22-30); Chloride 105 mmol/L (98-107); Glucose 120 mg/dL (74-99); Lipase 99 U/L (23-300); Magnesium 1.8 mg/dL (1.6-2.3); Non-African American GFR(CKD) >90 (>60 ml/min/1.73 sqM); Potassium 4.1 mmol/L (3.5-5.1); Sodium 139 mmol/L (137-145); Total Bilirubin 0.2 mg/dL (0.2-1.3); Total Protein 6.6 g/dL (6.3-8.2)
--- NOTE | 2021-02-13 01:20 | XR ---
EXAMINATION TYPE: XR chest 2V DATE OF EXAM: 02/13/2021 COMPARISON: NONE HISTORY: Chest pain TECHNIQUE: 2 views FINDINGS: Heart and mediastinum are normal. Lungs are clear. Diaphragm is normal. Bony thorax is inta ct. IMPRESSION: Normal chest.
[2021-02-13 01:27] LABS: INR 0.9 (<1.2); Partial Thromboplastin Time 23.1 sec (22.0-30.0); Prothrombin Time 9.5 sec (9.0-12.0)
[2021-02-13 01:32] LABS: Basophils # (A) 0.1 k/uL (0-0.2); Basophils % (A) 1 %; Eosinophils # (A) 0.3 k/uL (0-0.7); Eosinophils % (A) 2 %; HCT 43.5 % (34.0-46.0); HGB 14.3 gm/dL (11.4-16.0); Lymphocytes # (A) 2.4 k/uL (1.0-4.8); Lymphocytes % (A) 19 %; MCH 30.6 pg (25.0-35.0); MCHC 32.8 g/dL (31.0-37.0); MCV 93.3 fL (80.0-100.0); Monocytes # (A) 0.8 k/uL (0-1.0); Monocytes % (A) 6 %; Neutrophils # (A) 9.1 k/uL (1.3-7.7); Neutrophils % (A) 71 %; Platelet Count 353 k/uL (150-450); RBC 4.66 m/uL (3.80-5.40); RDW 12.3 % (11.5-15.5); WBC 12.8 k/uL (3.8-10.6)
[2021-02-13 04:55] VITALS: BP 116/80; PULSE 71; RESP 16
== END 2021-02-13 05:04 | disposition home or self-care (01) ==
LOC: EC 23:49
DX: R07.89 Other chest pain (principal); F17.210 Nicotine dependence, cigarettes, uncomplicated; Z82.49 Family history of ischemic heart disease and other diseases of the circulatory system; Z20.822 Contact with and (suspected) exposure to COVID-19; Z88.2 Allergy status to sulfonamides; Z91.018 Allergy to other foods; Z88.5 Allergy status to narcotic agent
CPT/HCPCS: 36415; 71046; 80053; 83690; 83735; 84484; 85025; 85610; 85730; 87635; 93005; 99285

== ENCOUNTER → 2021-06-17 | Outpatient (CLI) | payer BC ==
--- NOTE | 2021-06-17 21:39 | MR ---
EXAMINATION TYPE: MR brain/cspine wo DATE OF EXAM: 06/17/2021 COMPARISON: NONE HISTORY: Headaches, numbness, neck pain. Evaluate for MS, family hx. TECHNIQUE: Multiplanar, multisequence images of the brain and brainstem and cervical spine are all performed wit hout IV contrast. Demyelinating disease protocol with additional Sagittal Flair sequence brain perfo rmed and PD sagittal sequence cervical spine performed. FINDINGS: Brain: T2 Lesions Present : Yes Approximate Number of Lesions: Approximately 5 Locations Identified : Scattered Size of Reference Lesion(s): 1. 8 x 4 x 5 mm on axial image 13 and sagittal image 181 right parietal occipital level 2 5 x 4 x 3 mm on axial image 19 and sagittal image 163 right frontal periventricular level Enhancing Lesion(s) Present: n/a T1 Hypointense Lesion(s) Present: Yes Change from Prior: n/a Diffusion weighted images demonstrate no evidence of a recent infarct. There is no worrisome extra-a xial fluid collection. The ventricular system and cisternal spaces are normal in size and appearance . The brain volume is age appropriate. Midline structures demonstrate empty sella morphology. The craniocervical junction appears within no rmal limits. Normal vascular flow voids are evident.. The visualized sinuses are clear and the globe s are intact. Nasal septum deviated to right of midline. IMPRESSION: Mild nonspecific white matter changes as detailed above. Demyelinating disease cannot be excluded. FINDINGS: Sagittal images of the cervical spine show the craniocervical junction to appear within nor mal limits. The cervical and upper thoracic spinal cord is normal in caliber and course. Grade 1 ret rolisthesis C5 on C6. The vertebral body and intravertebral disk heights are normal. The bone marro w signal intensity is within normal limits. Axial images show C2-C3 and C3-C4 levels to appear within normal limits. Axial images at C4-C5 level mild broad disc protrusion minimally effaces the anterior thecal sac. Pat ent bilateral neural foramina. Axial images at C5-C6 level shows mild broad-based left paracentral disc protrusion mildly effacing a nterior thecal sac, patent bilateral neural foramina. Axial images at C6-C7 and C7-T1 levels appear within normal limits. There is suggestion of subtle T2 hyperintense lesion involving the right dorsal C3 level sagittal jerry ge 9 and axial image 39 for reference measuring 2 mm on axial image transversely. IMPRESSION: Subtle tiny lesion C3 level.
== END | disposition home or self-care (01) ==
LOC: RADMRIMAIN 17:33
PROVIDERS: ATTEND Psychiatry & Neurology Neurology
DX: G35 Multiple sclerosis (principal); R20.2 Paresthesia of skin; M54.2 Cervicalgia; G44.219 Episodic tension-type headache, not intractable; M54.12 Radiculopathy, cervical region
CPT/HCPCS: 70551; 72141

== ENCOUNTER → 2022-01-06 | Outpatient (CLI) | payer BC ==
--- NOTE | 2022-01-06 15:20 | MM ---
Reason for Exam: Additional evaluation requested from prior study. Last mammogram was performed 1 year(s) and 1 month(s) ago. Patient History: Menarche at age 11. First Full-Term at age 30. Late child-bearing (after 30). Postmenopausal. Currently using Hormonal Contraceptives, beginning at age 20 for 7 years. 1991, Benign Excisional Biopsy on the right side. 12/26/2019, Benign Core Biopsy on the right side. Paternal grandmother had breast cancer. Maternal aunt had breast cancer. Risk Values: Gabi 5 year model risk: 2.3%. NCI Lifetime model risk: 18.9%. Prior Study Comparison: 10/19/2007 Bilateral Screening Mammogram, [facility]. 02/17/2014 Bilateral Screening Mammogram, [facility]. 03/12/2015 Bilateral Screening Mammogram, [facility]. 03/20/2017 Bilateral Screening Mammogram, [facility]. 04/01/2017 Right Diagnostic Mammogram, [facility]. 10/29/2018 Bilateral Diagnostic Mammogram, [facility]. 12/14/2019 Bilateral Diagnostic Mammogram, [facility]. 06/25/2020 Right Diagnostic Mammogram, [facility]. 12/14/2020 Bilateral Screening Mammogram, [facility]. 12/26/2020 Left Diagnostic Mammogram, [facility]. Tissue Density: The breast tissue is heterogeneously dense. This may lower the sensitivity of mammography. Findings: Analyzed By CAD. Mammotome biopsy clip in the right breast is redemonstrated. Round 5 mm circumscribed mass in the right breast posteriorly is stable. A few benign-appearing tiny round calcifications towards the left axilla are noted. No new distortion or new mass in either breast. Overall Assessment: Benign, BI-RAD 2 Management: Screening Mammogram of both breasts in 1 year. A clinical breast exam by your physician is recommended on an annual basis and results should be correlated with mammographic findings. This exam should not preclude additional follow-up of suspicious palpable abnormalities. Results were given to the patient verbally at the time of exam. Electronically signed and approved by: Brennen Soto M.D.
== END | disposition home or self-care (01) ==
LOC: RADMAMWWP 14:49
PROVIDERS: ATTEND Family Medicine
DX: R92.8 Other abnormal and inconclusive findings on diagnostic imaging of breast (principal); Z78.0 Asymptomatic menopausal state; Z80.3 Family history of malignant neoplasm of breast
CPT/HCPCS: 77062; 77066

== ENCOUNTER → 2022-11-14 | Outpatient (CLI) | payer BC ==
--- NOTE | 2022-11-14 11:29 | CTL ---
EXAMINATION TYPE: CT Low Dose Lung DATE OF EXAM ORDERED: 11/14/2022 HISTORY: . Lung cancer screening CT DLP: 87.[address] CTDI: 2.4 mGy Automated exposure control for dose reduction was used. SCREENING VISIT: COMPARISON: None available. TECHNIQUE: Low dose computed tomography scan was performed through the chest at 1 mm thick sections a nd reconstructed images in multiple planes at 1 mm and [address] DIAGNOSTIC QUALITY: Satisfactory FINDINGS: LUNG NODULES: None. LUNGS: COPD: Severity: There is mild to moderate upper lobe predominant centrilobular and paraseptal emphyse ma. Fibrosis: Severity: None Lymph nodes: Other findings: RIGHT PLEURAL SPACE: Effusion: None Calcification: None Thickening: None Pneumothorax: None LEFT PLEURAL SPACE: Effusion: None Calcification: None Thickening: None Pneumothorax: None HEART: Heart Size: Normal Coronary Calcification: None Pericardial Effusion: None OTHER FINDINGS: Upper abdomen: There is a 2.5 cm cyst within the left lobe of the liver. The visualized upper abdomen otherwise appears unremarkable. Bony thorax: None Supraclavicular region: None Other: None IMPRESSION: 1. Small right upper lobe pulmonary nodule. 2. Mild to moderate emphysema. CT LUNG RAD AND CT CHEST RECOMMENDATION: Lung-Rad 2 Benign Appearance or Behavior: Continue annual sc reening with LDCT in 12 months. S Modifier (other clinically significant findings): None.
== END | disposition home or self-care (01) ==
LOC: RADCTMAIN 10:36
PROVIDERS: ATTEND Family Medicine
DX: Z12.2 Encounter for screening for malignant neoplasm of respiratory organs (principal); J43.2 Centrilobular emphysema; R91.1 Solitary pulmonary nodule; F17.210 Nicotine dependence, cigarettes, uncomplicated
CPT/HCPCS: 71271

== ENCOUNTER 2023-02-16 08:41 | Emergency (ER) | payer BC ==
[2023-02-16 09:11] VITALS: RESP 18; TEMP 98.6
[2023-02-16 09:44] LABS: Mucus,Urine Few /hpf; RBC,Urine >182 /hpf (0-5); WBC,Urine >182 /hpf (0-5)
[2023-02-16 09:46] LABS: Appearance,Urine Bloody (Clear); Color,Urine Red
[2023-02-16] MEDS ORDERED: cefTRIAXone 1,000 MG VIAL (IM USE) IM STA (09:54)
--- NOTE | 2023-02-16 10:32 | ED ---
General Adult HPI - General Chief complaint: Urogenital Stated complaint: uti Time Seen by Provider: 02/16/23 09:20 Source: patient, RN notes reviewed, old records reviewed Mode of arrival: ambulatory Limitations: no limitations - History of Present Illness Initial comments: This a 53-year-old female presents to the emergency department stating that she started having hematuria and dysuria since last night. Patient denies any blood thinners. Patient denies any back pain or abdominal pain. Patient denies any fever chills. - Related Data Home Medications Medication Instructions Recorded Confirmed Fexofenadine/Pseudoephedrine 600 mg PO BID PRN 10/23/17 03/10/20 [Danyelle-D 12 Hour Tablet] Terbinafine [LamISIL] 250 mg PO HS 12/16/19 03/10/20 Balance Estrogen Vitamin 2 tab PO DAILY 03/10/20 03/10/20 Beef Thyroid Vitamin 1 tab PO DAILY 03/10/20 03/10/20 Bovine Adrenal Vitamin 2 tab PO DAILY 03/10/20 03/10/20 Previous Rx's Medication Instructions Recorded Dicyclomine [Bentyl] 20 mg PO TID #20 tablet 03/10/20 Nitrofurantoin Monohyd/M-Cryst 100 mg PO Q12HR #14 cap 02/16/23 [Macrobid] Allergies Allergy/AdvReac Type Severity Reaction Status Date / Time Sulfa (Sulfonamide Allergy Unknown Verified 02/16/23 09:10 Antibiotics) Childhood gluten AdvReac Nausea & Verified 02/16/23 09:10 Vomiting & Diarrhea hydrocodone [From Vicodin] AdvReac Nausea Verified 02/16/23 09:10 morphine AdvReac Nausea Verified 02/16/23 09:10 Review of Systems ROS Statement: Those systems with pertinent positive or pertinent negative responses have been documented in the HPI. ROS Other: All systems not noted in ROS Statement are negative. Past Medical History Additional Past Medical History / Comment(s): endometriosis, kidney infection. History of Any Multi-Drug Resistant Organisms: None Reported Past Surgical History: Breast Surgery Additional Past Surgical History / Comment(s): benign excisional biopsy right breast 1991, laproscopy surgery Past Anesthesia/Blood Transfusion Reactions: Previous Problems w/ Anesthesia Additional Past Anesthesia/Blood Transfusion Reaction / Comment(s): "Hard time waking up" after breast excisional biopsy 1991 Past Psychological History: Anxiety, Depression Smoking Status: Current every day smoker Past Alcohol Use History: Occasional Past Drug Use History: Marijuana General Exam - General Exam Comments Initial Comments: GENERAL: Patient is well-developed and well-nourished. Patient is nontoxic and well- hydrated and is in no acute distress. ENT: Neck is soft and supple. No significant lymphadenopathy is noted. Oropharynx is clear. Moist mucous membranes. Neck has full range of motion without eliciting any pain. EYES: The sclera were anicteric and conjunctiva were pink and moist. Extraocular movements were intact and pupils were equal round and reactive to light. Eyelids were unremarkable. ABDOMEN: Soft and nontender with normal bowel sounds. SKIN: Skin is clear with no lesions or rashes and otherwise unremarkable. NEUROLOGIC: Patient is alert and oriented x3. Cranial nerves II through XII are grossly intact. Motor and sensory are also intact. Normal speech, volume and content. Symmetrical smile. . MUSCULOSKELETAL: Normal extremities with adequate strength and full range of motion. LYMPHATICS: No significant lymphadenopathy is noted PSYCHIATRIC: Normal psychiatric evaluation. Limitations: no limitations Course Vital Signs 02/16/23 09:06 Temperature 98.6 F Pulse Rate 91 Respiratory 18 Rate Blood Pressure 121/76 O2 Sat by Pulse 99 Oximetry Medical Decision Making - Medical Decision Making Was pt. sent in by a medical professional or institution (, PA, CREW CHIEF, urgent care, hospital, or penitentiary...) When possible be specific @ -No Did you speak to anyone other than the patient for history (EMS, parent, family, police, friend...)? What history was obtained from this source @ -No Did you review nursing and triage notes (agree or disagree)? Why? @ -I reviewed and agree with nursing and triage notes Were old charts reviewed (outside hosp., previous admission, EMS record, old EKG, old radiological studies, urgent care reports/EKG's, penitentiary records)? Report findings @ -No old charts were reviewed Differential Diagnosis (chest pain, altered mental status, abdominal pain women, abdominal pain men, vaginal bleeding, weakness, fever, dyspnea, syncope, headache, dizziness, GI bleed, back pain, seizure, CVA, palpatations, mental health, musculoskeletal)? @ -not applicable EKG interpreted by me (3pts min.). @ -As above X-rays interpreted by me (1pt min.). @ -None done CT interpreted by me (1pt min.). @ -None done U/S interpreted by me (1pt. min.). @ -None done What testing was considered but not performed or refused? (CT, X-rays, U/S, labs)? Why? @ -None What meds were considered but not given or refused? Why? @ -None Did you discuss the management of the patient with other professionals (professionals i.e. DrLuzmaria, PA, CREW CHIEF, lab, RT, psych nurse, social welfare administrator, folding machine operator, teacher, aviation ordnance officer, piano case maker)? Give summary @ -No Was smoking cessation discussed for >3mins.? @ -No Was critical care preformed (if so, how long)? @ -No Were there social determinants of health that impacted care today? How? (Homelessness, low income, unemployed, alcoholism, drug addiction, transportation, low edu. Level, literacy, decrease access to med. care, nursing home, rehab)? @ -No Was there de-escalation of care discussed even if they declined (Discuss DNR or withdrawal of care, Hospice)? DNR status @ -No What co-morbidities impacted this encounter? (DM, HTN, Smoking, COPD, CAD, Cancer, CVA, ARF, Chemo, Hep., AIDS, mental health diagnosis, sleep apnea, morbid obesity)? @ -None Was patient admitted / discharged? Hospital course, mention meds given and route, prescriptions, significant lab abnormalities, going to OR and other pertinent info. @ -Patient's urinalysis showed a lot of white cells as well as a lot of red cells. Undiagnosed new problem with uncertain prognosis? @ -No Drug Therapy requiring intensive monitoring for toxicity (Heparin, Nitro, Insulin, Cardizem)? @ -No Were any procedures done? @ -No Diagnosis/symptom? @ -Urinary tract infection Acute, or Chronic, or Acute on Chronic? @ -Acute Uncomplicated (without systemic symptoms) or Complicated (systemic symptoms)? @ -Complicated Side effects of treatment? @ -No Exacerbation, Progression, or Severe Exacerbation? @ -No Poses a threat to life or bodily function? How? (Chest pain, USA, MS, pneumonia, PE, COPD, DKA, ARF, appy, cholecystitis, CVA, Diverticulitis, Homicidal, Suicidal, threat to staff... and all critical care pts) @ -No Diagnosis/symptom? @ -Hematuria Acute, or Chronic, or Acute on Chronic? @ -Acute Uncomplicated (without systemic symptoms) or Complicated (systemic symptoms)? @ -Complicated Side effects of treatment? @ -none Exacerbation, Progression, or Severe Exacerbation] @ -no Poses a threat to life or bodily function? @ -no - Lab Data Lab Results 02/16/23 Range/Units 09:20 Urine Color Red Urine Appearance Bloody H (Clear) Urine RBC >182 H (0-5) /hpf Urine WBC >182 H (0-5) /hpf Urine Mucus Few H (None) /hpf Disposition Clinical Impression: Urinary tract infection, Hematuria Disposition: HOME SELF-CARE Instructions (If sedation given, give patient instructions): Urinary Tract Infection in Women (ED) Additional Instructions: Patient needs to follow up with primary medical care doctor secondary to the hematuria. Patient is to take the antibiotic as prescribed. Prescriptions: Nitrofurantoin Monohyd/M-Cryst [Macrobid] 100 mg PO Q12HR #14 cap Is patient prescribed a controlled substance at d/c from ED?: No Referrals: Lesvia Correa MD [Primary Care Provider] - 1-2 days Time of Disposition: 10:31
[2023-02-16 10:55] VITALS: BP 118/76; PULSE 78
== END 2023-02-16 10:50 | disposition home or self-care (01) ==
LOC: EC 08:41
DX: N39.0 Urinary tract infection, site not specified (principal); F41.9 Anxiety disorder, unspecified; F32.A Depression, unspecified; F17.200 Nicotine dependence, unspecified, uncomplicated; F12.90 Cannabis use, unspecified, uncomplicated; Z88.2 Allergy status to sulfonamides; Z88.5 Allergy status to narcotic agent; Z88.8 Allergy status to other drugs, medicaments and biological substances; Z79.899 Other long term (current) drug therapy
CPT/HCPCS: 81001; 87086; 87077; 87186; 99283; 96372; J0696

== ENCOUNTER → 2023-02-19 | Outpatient (CLI) | payer BC ==
--- NOTE | 2023-02-23 14:23 | MM ---
Reason for Exam: Screening (asymptomatic). Last mammogram was performed 1 year(s) and 1 month(s) ago. Patient History: Menarche at age 11. First Full-Term at age 30. Late child-bearing (after 30). Postmenopausal. Currently using Hormonal Contraceptives, beginning at age 20 for 7 years. 1991, Benign Excisional Biopsy on the right side. 12/26/2019, Benign Core Biopsy on the right side. Paternal grandmother had breast cancer. Maternal aunt had breast cancer. Risk Values: Agbi 5 year model risk: 2.5%. NCI Lifetime model risk: 18.3%. Prior Study Comparison: 12/14/2020 Bilateral Screening Mammogram, [facility]. 12/26/2020 Left Diagnostic Mammogram, [facility]. 01/06/2022 Bilateral MG 3D diag mammo w/cad FRANCISCO JAVIER, [facility]. Tissue Density: The breast tissue is heterogeneously dense. This may lower the sensitivity of mammography. Findings: Analyzed By CAD. Areas of asymmetric density remain unchanged. There is no suspicious group of microcalcifications or new suspicious mass in either breast. Overall Assessment: Benign, BI-RAD 2 Management: Screening Mammogram of both breasts in 1 year. . Patient should continue monthly self-breast exams. A clinical breast exam by your physician is recommended on an annual basis. This exam should not preclude additional follow-up of suspicious palpable abnormalities. Note on Gabi scores and lifetime risk: 1. A Gabi score greater than 3% is considered moderate risk. If this is the case, consider specialist referral to assess eligibility for a risk reducing agent. 2. If overall lifetime risk for the development of breast cancer is 20% or higher, the patient may qualify for future screening with alternating mammogram and breast MRI. Electronically signed and approved by: Erna Bassett M.D. Radiologist
== END | disposition home or self-care (01) ==
LOC: RADMAMWWP 11:30
PROVIDERS: ATTEND Obstetrics & Gynecology Obstetrics
DX: Z12.31 Encounter for screening mammogram for malignant neoplasm of breast (principal); Z80.3 Family history of malignant neoplasm of breast; Z78.0 Asymptomatic menopausal state
CPT/HCPCS: 77063; 77067

== ENCOUNTER 2023-08-05 22:33 | Emergency (ER) | payer BC ==
[2023-08-05 22:41] VITALS: RESP 18
--- NOTE | 2023-08-05 23:17 | ED ---
Skin/Abscess/FB HPI - General Chief complaint: Skin/Abscess/Foreign Body Stated complaint: Post surgery complications, fever, swelling Time Seen by Provider: 08/05/23 23:16 Source: patient Mode of arrival: ambulatory Limitations: no limitations - History of Present Illness Initial comments: 53-year-old female presenting with chief complaint of redness pain and swelling near her surgical site. On Thursday patient had surgery at [facility] for a perirectal abscess. Today the patient developed a fever. Patient's abscess was present on the left side of the anus, she does have a small open wound to that area. Patient and her daughter states that she has had redness and tenderness spreading over to the right side as well. Daughter also states that there seems to be a developing "blister" to the right of the anus. The patient did have some purulent discharge earlier today. No nausea vomiting or abdominal pain. - Related Data Home Medications Medication Instructions Recorded Confirmed Fexofenadine/Pseudoephedrine 600 mg PO BID PRN 10/23/17 03/10/20 [Danyelle-D 12 Hour Tablet] Terbinafine [LamISIL] 250 mg PO HS 12/16/19 03/10/20 Balance Estrogen Vitamin 2 tab PO DAILY 03/10/20 03/10/20 Beef Thyroid Vitamin 1 tab PO DAILY 03/10/20 03/10/20 Bovine Adrenal Vitamin 2 tab PO DAILY 03/10/20 03/10/20 Previous Rx's Medication Instructions Recorded Dicyclomine [Bentyl] 20 mg PO TID #20 tablet 03/10/20 Nitrofurantoin Monohyd/M-Cryst 100 mg PO Q12HR #14 cap 02/16/23 [Macrobid] Allergies Allergy/AdvReac Type Severity Reaction Status Date / Time Sulfa (Sulfonamide Allergy Unknown Verified 08/05/23 22:41 Antibiotics) Childhood gluten AdvReac Nausea & Verified 08/05/23 22:41 Vomiting & Diarrhea hydrocodone [From Vicodin] AdvReac Nausea Verified 08/05/23 22:41 morphine AdvReac Nausea Verified 08/05/23 22:41 Review of Systems ROS Statement: Those systems with pertinent positive or pertinent negative responses have been documented in the HPI. ROS Other: All systems not noted in ROS Statement are negative. Past Medical History Past Medical History: COPD Additional Past Medical History / Comment(s): endometriosis, kidney infection. History of Any Multi-Drug Resistant Organisms: None Reported Past Surgical History: Breast Surgery Additional Past Surgical History / Comment(s): benign excisional biopsy right breast 1992, laproscopy surgery Past Anesthesia/Blood Transfusion Reactions: Previous Problems w/ Anesthesia Additional Past Anesthesia/Blood Transfusion Reaction / Comment(s): "Hard time waking up" after breast excisional biopsy 1991 Past Psychological History: Anxiety, Depression Smoking Status: Current every day smoker Past Alcohol Use History: Occasional Past Drug Use History: Marijuana General Exam - General Exam Comments Initial Comments: Visual Physical Exam Vital signs reviewed General: Well-appearing, nontoxic, no acute distress. Head: Normocephalic, atraumatic Eyes: PERRLA, EOMI ENT: Airway patent Chest: Nonlabored breathing Skin: No visual rash, normal skin tone Neuro: Alert and oriented 3 Musculoskeletal: No gross abnormalities Limitations: no limitations General appearance: alert, in no apparent distress Head exam: Present: atraumatic, normocephalic Eye exam: Present: normal appearance, EOMI Neck exam: Present: normal inspection. Absent: meningismus Respiratory exam: Absent: respiratory distress Cardiovascular Exam: Present: regular rate Rectal exam: Present: tenderness (Tenderness and erythema spreading to the right glute, there is an area of induration as well. There is also a small elevated area to the right of the anus, concerning for possible blister or bullae) Course Vital Signs 08/05/23 08/06/23 08/06/23 22:36 03:43 06:43 Temperature 98.2 F 99.3 F 99.2 F Pulse Rate 94 81 83 Respiratory 18 18 18 Rate Blood Pressure 106/71 121/75 111/69 O2 Sat by Pulse 98 98 95 Oximetry Medical Decision Making - Medical Decision Making 53-year-old female presenting with chief complaint of fever. She had surgery for perirectal abscess on Thursday at [facility]. Fever started today. Patient and daughter also states that she has had some spreading redness and tenderness as well. Workup is initiated by triage. White count of 17.2. Patient is later placed in a room and evaluated by myself. On exam I do see the surgical site to the left of the anus, however there is spreading redness to the right of the anus into the glute and perineum. There is a small area of induration. I also see a small elevated lesion resembling possibly a blister or bullae. CT is obtained which shows subcutaneous air throughout the perineum with supralevator extension into the pelvis. Patient has a history of recent surgery, correlate with surgical history. Foreigners gangrene cannot be excluded, correlate if the area is postsurgical. No prior studies are available for comparison. No fluid collection or abscess in the perirectal or perianal regions. Patient is started on vancomycin, Zosyn, and clindamycin after blood cultures are drawn. Patient will require transfer to [facility] accepting physician is Dr. Clemons she is agreeable with this plan. I discussed this case with my attending Dr. Aviles Was pt. sent in by a medical professional or institution (, PA, PLATE SLITTER AND INSPECTOR, urgent care, hospital, or intermediate...) When possible be specific @ -No Did you speak to anyone other than the patient for history (EMS, parent, family, police, friend...)? What history was obtained from this source @ -No Did you review nursing and triage notes (agree or disagree)? Why? @ -I reviewed and agree with nursing and triage notes Were old charts reviewed (outside hosp., previous admission, EMS record, old EKG, old radiological studies, urgent care reports/EKG's, intermediate records)? Report findings @ -No old charts were reviewed Differential Diagnosis (chest pain, altered mental status, abdominal pain women, abdominal pain men, vaginal bleeding, weakness, fever, dyspnea, syncope, headache, dizziness, GI bleed, back pain, seizure, CVA, palpatations, mental health, musculoskeletal)? @ -Differential includes cellulitis, abscess, fistula, this is not an all- inclusive list EKG interpreted by me (3pts min.). @ -As above X-rays interpreted by me (1pt min.). @ -None done CT interpreted by me (1pt min.). @ -CT shows subcutaneous air throughout the perineum with supralevator extension into the pelvis. Patient has a history of recent surgery, correlate with surgical history. 40 years gangrene cannot be excluded correlate if the area is postsurgical. No prior studies are available for comparison. No fluid collection or abscess in the perirectal or perianal regions U/S interpreted by me (1pt. min.). @ -None done What testing was considered but not performed or refused? (CT, X-rays, U/S, labs)? Why? @ -None What meds were considered but not given or refused? Why? @ -None Did you discuss the management of the patient with other professionals (professionals i.e. , PA, PLATE SLITTER AND INSPECTOR, lab, RT, psych nurse, social service worker, licensed marriage and family therapist, teacher, reserve officer, senior case manager)? Give summary @ -I spoke with Dr. Clemons at [facility] who accepted admission Was smoking cessation discussed for >3mins.? @ -No Was critical care preformed (if so, how long)? @ -No Were there social determinants of health that impacted care today? How? (Homelessness, low income, unemployed, alcoholism, drug addiction, transportation, low edu. Level, literacy, decrease access to med. care, retirement, rehab)? @ -No Was there de-escalation of care discussed even if they declined (Discuss DNR or withdrawal of care, Hospice)? DNR status @ -No What co-morbidities impacted this encounter? (DM, HTN, Smoking, COPD, CAD, Cancer, CVA, ARF, Chemo, Hep., AIDS, mental health diagnosis, sleep apnea, morbid obesity)? @ -None Was patient admitted / discharged? Hospital course, mention meds given and route, prescriptions, significant lab abnormalities, going to OR and other pertinent info. @ -Transfer to [facility], see above for details Undiagnosed new problem with uncertain prognosis? @ -No Drug Therapy requiring intensive monitoring for toxicity (Heparin, Nitro, Insu diana, Cardizem)? @ -No Were any procedures done? 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 @ -Acute Uncomplicated (without systemic symptoms) or Complicated (systemic symptoms)? @ -Complicated Side effects of treatment? @ -No Exacerbation, Progression, or Severe Exacerbation? @ -No Poses a threat to life or bodily function? How? (Chest pain, USA, DC, pneumonia, PE, COPD, DKA, ARF, appy, cholecystitis, CVA, Diverticulitis, Homicidal, Suicidal, threat to staff... and all critical care pts) @ -Yes - Lab Data Result diagrams: 08/05/23 23:30 08/05/23 23:30 Lab Results 08/05/23 08/05/23 08/05/23 Range/Units 23:30 23:30 23:30 WBC 17.2 H (3.8-10.6) k/uL RBC 4.63 (3.80-5.40) m/uL Hgb 14.2 (11.4-16.0) gm/dL Hct 41.6 (34.0-46.0) % MCV 89.7 (80.0-100.0) fL MCH 30.6 (25.0-35.0) pg MCHC 34.1 (31.0-37.0) g/dL RDW 13.4 (11.5-15.5) % Plt Count 284 (150-450) k/uL MPV 8.3 Neutrophils % 79 % Lymphocytes % 12 % Monocytes % 7 % Eosinophils % 1 % Basophils % 1 % Neutrophils # 13.5 H (1.3-7.7) k/uL Lymphocytes # 2.1 (1.0-4.8) k/uL Monocytes # 1.2 H (0-1.0) k/uL Eosinophils # 0.1 (0-0.7) k/uL Basophils # 0.1 (0-0.2) k/uL Sodium 135 L (137-145) mmol/L Potassium 4.1 (3.5-5.1) mmol/L Chloride 107 (98-107) mmol/L Carbon Dioxide 24 (22-30) mmol/L Anion Gap 4 mmol/L BUN 11 (7-17) mg/dL Creatinine 0.69 (0.52-1.04) mg/dL Est GFR (CKD-EPI)AfAm >90 (>60 ml/min/1.73 sqM) Est GFR (CKD-EPI)NonAf >90 (>60 ml/min/1.73 sqM) Glucose 113 H (74-99) mg/dL Plasma Lactic Acid Luciano 1.0 (0.7-2.0) mmol/L Calcium 8.6 (8.4-10.2) mg/dL Total Bilirubin 0.5 (0.2-1.3) mg/dL AST 29 (14-36) U/L ALT 17 (4-34) U/L Alkaline Phosphatase 95 (38-126) U/L Total Protein 6.3 (6.3-8.2) g/dL Albumin 3.8 (3.5-5.0) g/dL Disposition 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 Specs Out of Hospital Transfer - Requested Specifics: Other Emergency Center ([facility])
[2023-08-06 00:13] LABS: Basophils # (A) 0.1 k/uL (0-0.2); Basophils % (A) 1 %; Eosinophils # (A) 0.1 k/uL (0-0.7); Eosinophils % (A) 1 %; HCT 41.6 % (34.0-46.0); HGB 14.2 gm/dL (11.4-16.0); Lymphocytes # (A) 2.1 k/uL (1.0-4.8); Lymphocytes % (A) 12 %; MCH 30.6 pg (25.0-35.0); MCHC 34.1 g/dL (31.0-37.0); MCV 89.7 fL (80.0-100.0); Mean Platelet Volume 8.3; Monocytes # (A) 1.2 k/uL (0-1.0); Monocytes % (A) 7 %; Neutrophils # (A) 13.5 k/uL (1.3-7.7); Neutrophils % (A) 79 %; Platelet Count 284 k/uL (150-450); RBC 4.63 m/uL (3.80-5.40); RDW 13.4 % (11.5-15.5); WBC 17.2 k/uL (3.8-10.6)
[2023-08-06 00:25] LABS: ALT 17 U/L (4-34); AST 29 U/L (14-36); African American GFR (CKD) >90 (>60 ml/min/1.73 sqM); Albumin 3.8 g/dL (3.5-5.0); Alkaline Phosphatase 95 U/L (38-126); Anion Gap 4 mmol/L; Blood Urea Nitrogen 11 mg/dL (7-17); Calcium 8.6 mg/dL (8.4-10.2); Carbon Dioxide 24 mmol/L (22-30); Chloride 107 mmol/L (98-107); Glucose 113 mg/dL (74-99); Non-African American GFR(CKD) >90 (>60 ml/min/1.73 sqM); Potassium 4.1 mmol/L (3.5-5.1); Sodium 135 mmol/L (137-145); Total Bilirubin 0.5 mg/dL (0.2-1.3); Total Protein 6.3 g/dL (6.3-8.2)
--- NOTE | 2023-08-06 02:54 | CT ---
EXAM: CT Abdomen and Pelvis With Intravenous Contrast CLINICAL HISTORY: ITS.REASON CT Reason: perirectal abscess TECHNIQUE: Axial computed tomography images of the abdomen and pelvis with intravenous contrast. CTDI is 20.6 mGy and DLP is 933 mGy-cm. This CT exam was performed using one or more of the following dose reduction techniques: automated exposure control, adjustment of the mA and/or kV according to patient size, and/or use of iterative reconstruction technique. COMPARISON: No relevant prior studies available. FINDINGS: Lung bases: Unremarkable. No mass. No consolidation. Mediastinum: Small hiatal hernia. ABDOMEN: Liver: Hepatic steatosis. Low attenuation cystic foci in the liver, too small to characterize. Consider ultrasound correlation. Gallbladder and bile ducts: Unremarkable. No calcified stones. No ductal dilation. Pancreas: Unremarkable. No mass. No ductal dilation. Spleen: Unremarkable. No splenomegaly. Adrenals: Unremarkable. No mass. Kidneys and ureters: Unremarkable. No solid mass. No hydronephrosis. Stomach and bowel: Unremarkable. No obstruction. No mucosal thickening. PELVIS: Appendix: No findings to suggest acute appendicitis. Bladder: Unremarkable. No mass. Reproductive: Unremarkable as visualized. Subperitoneal space: Unremarkable. No fluid collection or abscess in the perirectal or perianal regions. ABDOMEN and PELVIS: Intraperitoneal space: Unremarkable. No free air. No significant fluid collection. Bones/joints: No acute fracture. No dislocation. Soft tissues: Subcutaneous air throughout the perineum, with supralevator extension, into the pelvis. Patient has a history of recent surgery, correlate with surgical history. Jose's gangrene cannot be excluded, correlate if the air is postsurgical. No prior studies are available for comparison. Vasculature: Unremarkable. No abdominal aortic aneurysm. Lymph nodes: Unremarkable. No enlarged lymph nodes. IMPRESSION: 1. Subcutaneous air throughout the perineum, with supralevator extension, into the pelvis. Patient has a history of recent surgery, correlate with surgical history. Jose's gangrene cannot be excluded, correlate if the air is postsurgical. No prior studies are available for comparison. 2. No fluid collection or abscess in the perirectal or perianal regions. <MYCVCSECTION> Communications: 08/06/23 02:55 Call Doctor Regarding Other, called GUERO Strange on 08/05 02:55 (-04:00)
[2023-08-06] MEDS ORDERED: VANCOMYCIN IV PER PHARMACY 1 EACH MISC MISCELLANE PRN (03:14)
[2023-08-06] MEDS: SODIUM CHLORIDE 0.9% 1,000 ML IV ONE (03:38)
[2023-08-06] MEDS: PIPERACILLIN-TAZOBACTAM 3.375 GM in SODIUM CHLORIDE 0.9% 100 ML IVPB STA (03:40)
[2023-08-06] MEDS: KETOROLAC 15 MG/ML 1 ML VIAL IVP STA (04:28)
[2023-08-06] MEDS: VANCOMYCIN 1,500 MG in SODIUM CHLORIDE 0.9% 500 ML 500 ML IVPB STA (05:40)
[2023-08-06] MEDS: CLINDAMYCIN 900 MG in DEXTROSE 5% IN WATER 50 ML IVPB STA (05:40)
[2023-08-06 06:43] VITALS: BP 111/69; PULSE 83; TEMP 99.2
[2023-08-06] MEDS ORDERED: CLINDAMYCIN 900 MG in DEXTROSE 5% IN WATER 50 ML IVPB SCH (12:00)
[2023-08-06] MEDS ORDERED: VANCOMYCIN 1,500 MG in SODIUM CHLORIDE 0.9% 500 ML 500 ML IVPB SCH (14:00)
== END 2023-08-06 06:57 | disposition other institution (70) ==
LOC: EC 22:33
DX: N76.82 Fournier disease of vagina and vulva (principal); K61.1 Rectal abscess; F17.200 Nicotine dependence, unspecified, uncomplicated; Z88.1 Allergy status to other antibiotic agents; Z88.2 Allergy status to sulfonamides; Z88.5 Allergy status to narcotic agent; Z88.8 Allergy status to other drugs, medicaments and biological substances
CPT/HCPCS: 36415; 80053; 83605; 85025; 87040; 74177; 99284; 96365; 96366; 96367; 96368; 96375; J2543; J3370; J1885; Q9967; J0736

== ENCOUNTER → 2024-01-05 | Outpatient (CLI) | payer BC ==
--- NOTE | 2024-01-05 16:48 | CTL ---
EXAMINATION TYPE: CT Low Dose Lung DATE OF EXAM: 01/05/2024 4:39 PM COMPARISON: 11/14/2022. CLINICAL INDICATION: Female, 53 years old with history of Z12.2 Screening; F17.210 Nicotine dependenc e; current smoker x1ppd x35 years., history of tobacco use. TECHNIQUE: Multiple axial non-contrast scans were obtained from approximately the lung apices through the upper abdomen. Coronal and sagittal reformatted images were obtained. Low dose technique was uti lized. MIP were created on a separate workstation and submitted for review. CT DLP: 77 mGycm, Automated exposure control for dose reduction was used. CT Contrast: Contrast used: None Oral contrast used: None FINDINGS: Lack of intravenous contrast and low dose technique limits the evaluation of the vascular and soft ti ssue structures. LUNGS: No evidence of pulmonary fibrosis. No evidence of focal consolidation, pneumothorax or pleural effusion. Centrilobular emphysema changes. Nodules: RUL: No clinically significant pulmonary nodules. Cysts RML: None. RLL: None. CANDIDA: None. LLL: None. AIRWAY: Patent and unremarkable. HEART: Size within normal limits. MEDIASTINUM: No gross evidence of adenopathy. VASCULATURE: No aortic aneurysm. MUSCULOSKELETAL: No acute osseous abnormalities SOFT TISSUES/LYMPH NODES: Unremarkable. LOWER NECK: No significant findings. UPPER ABDOMEN: No significant findings. IMPRESSION: 1. No clinically significant pulmonary nodules. 2. Mild emphysema. CT LUNG RAD AND CT CHEST RECOMMENDATION: Lung-Rad 1 Negative: Continue annual screening with LDCT in 12 months. S Modifier (other clinically significant findings): None Recommend smoking cessation (if current smoker), or continuation of smoking cessation (if prior smoke r). Annual screening for lung cancer with low-dose computed tomography is recommended in adults ages 55 to 77 years who have a 30 pack-year smoking history and currently smoke or have quit within the pa st 15 years. Screening should be discontinued once a person has not smoked for 15 years or develops a health problem that substantially limits life expectancy or the ability or willingness to have curat brina lung surgery. Lung rads 2021 [email or web address] [facility], , 01/05/2024 4:46 PM
== END | disposition home or self-care (01) ==
LOC: RADCTMAIN 16:18
PROVIDERS: ATTEND Family Medicine
DX: Z12.2 Encounter for screening for malignant neoplasm of respiratory organs (principal); J43.9 Emphysema, unspecified; F17.210 Nicotine dependence, cigarettes, uncomplicated
CPT/HCPCS: 71271

== ENCOUNTER → 2024-02-22 | Outpatient (CLI) | payer BC ==
--- NOTE | 2024-02-26 19:30 | MM ---
Reason for Exam: Screening (asymptomatic). Last screening mammogram was performed 12 month(s) ago. Patient History: Menarche at age 11. First Full-Term at age 30. Late child-bearing (after 30). Postmenopausal. Currently using Hormonal Contraceptives, beginning at age 20 for 7 years. 1991, Benign Excisional Biopsy on the right side. 12/26/2019, Benign Core Biopsy on the right side. Paternal grandmother had breast cancer. Maternal aunt had breast cancer. Risk Values: Gabi 5 year model risk: 2.6%. NCI Lifetime model risk: 18.0%. Prior Study Comparison: 12/26/2020 Left Diagnostic Mammogram, [facility]. 01/06/2022 Bilateral MG 3D diag mammo w/cad FRANCISCO JAVIER, [facility]. 02/19/2023 Bilateral MG 3D screening mammo w/cad, [facility]. Tissue Density: The breasts are heterogeneously dense, which may obscure small masses. Findings: Analyzed By CAD. Increasing focal asymmetry posterior upper quadrant left breast with some associated calcifications. Increasing grouped calcifications upper outer quadrant left breast middle depth as well. Further evaluation recommended at both sites. Otherwise, no significant change. Microclip lateral right breast from prior biopsy. Overall Assessment: Incomplete: need additional imaging evaluation, BI-RAD 0 Management: Special View Mammogram of the left breast. Diagnostic Breast Ultrasound of the left breast. Magnification views both sites of calcifications. Possible ultrasound for the associated density of the posterior calcification. [facility] will attempt to contact patient to return for supplemental views and ultrasound if indicated. [facility], , 02/26/2024 6:54 PM. Electronically signed and approved by: Erna Bassett M.D. Radiologist
== END | disposition home or self-care (01) ==
LOC: RADMAMWWP 10:22
PROVIDERS: ATTEND Family Medicine
DX: Z12.31 Encounter for screening mammogram for malignant neoplasm of breast (principal); Z78.0 Asymptomatic menopausal state; Z80.3 Family history of malignant neoplasm of breast; R92.333 Mammographic heterogeneous density, bilateral breasts
CPT/HCPCS: 77063; 77067

== ENCOUNTER → 2024-03-10 | Outpatient (CLI) | payer BC ==
--- NOTE | 2024-03-10 13:48 | MM ---
Reason for Exam: Additional evaluation requested from abnormal screening. Last screening mammogram was performed less than 1 month ago. Patient History: Menarche at age 11. First Full-Term at age 30. Late child-bearing (after 30). Postmenopausal. Currently using Hormonal Contraceptives, beginning at age 20 for 7 years. 1991, Benign Excisional Biopsy on the right side. 12/26/2019, Benign Core Biopsy on the right side. Paternal grandmother had breast cancer. Maternal aunt had breast cancer. Risk Values: Gabi 5 year model risk: 2.6%. NCI Lifetime model risk: 18.0%. Prior Study Comparison: 01/06/2022 Bilateral MG 3D diag mammo w/cad FRANCISCO JAVIER, [facility]. 02/19/2023 Bilateral MG 3D screening mammo w/cad, [facility]. 02/22/2024 Bilateral MG 3D screening mammo w/cad, [facility]. Tissue Density: Left: The breasts are heterogeneously dense, which may obscure small masses. Findings: Analyzed By CAD. Increasing cluster of calcifications measuring roughly 9 mm posterior upper-outer quadrant does show amorphous morphology and sampling is advised. The cluster of calcifications upper outer quadrant anterior to this is felt to have more heterogeneous morphology, I do not see significant increase in number of calcifications from the 2022 mammogram to warrant sampling currently. Overall Assessment: Suspicious, BI-RAD 4 Management: Stereotactic Core Biopsy of the left breast. If the pathology results are not benign I would then consider sampling the more anterior group of calcifications. Results were given to the patient verbally at the time of exam. Patient should continue monthly self-breast exams. A clinical breast exam by your physician is recommended on an annual basis. This exam should not preclude additional follow-up of suspicious palpable abnormalities. Note on Gabi scores and lifetime risk: 1. A Gabi score greater than 3% is considered moderate risk. If this is the case, consider specialist referral to assess eligibility for a risk reducing agent. 2. If overall lifetime risk for the development of breast cancer is 20% or higher, the patient may qualify for future screening with alternating mammogram and breast MRI. [facility], , 03/10/2024 1:45 PM. Electronically signed and approved by: Brennen Soto M.D.
== END | disposition home or self-care (01) ==
LOC: RADMAMWWP 13:07
PROVIDERS: ATTEND Family Medicine
DX: R92.8 Other abnormal and inconclusive findings on diagnostic imaging of breast (principal); Z78.0 Asymptomatic menopausal state; Z80.3 Family history of malignant neoplasm of breast; R92.332 Mammographic heterogeneous density, left breast
CPT/HCPCS: 77061; 77065

== ENCOUNTER → 2024-04-22 | Outpatient (CLI) | payer BC ==
--- NOTE | 2024-04-22 21:38 | MR ---
EXAMINATION TYPE: MR liver wo/w con DATE OF EXAM: 04/22/2024 7:26 PM COMPARISON: CT scan abdomen from 04/15/2024. CLINICAL INDICATION: Female, 54 years old with history of C50.412 MALIG NEOPLASM OF UPPER-OUTER QUADR ANT OF; [facility], breast cancer, checking for metastasis to liver, abnormal CT. TECHNIQUE: Multiplanar multi-sequence imaging was performed without contrast. Post contrast imaging was performed. Post IV contrast subtraction images were also submitted for review. IV Contrast: 7.5 mL Gadobutrol FINDINGS: LOWER CHEST: Left breast suspected biopsy clip susceptibility artifact. ABDOMEN Liver: No evidence for hepatic steatosis or cirrhosis. Scattered high T2 signal lesions within the li rik the largest in the right hepatic lobe measuring up to 20 mm in segment 7 and segment 4A measuring 13 mm. Postcontrast imaging demonstrates peripheral progressive enhancement of the segment 7 lesion with no significant enhancement of the segment 4A lesion. Gallbladder and Bile ducts: No evidence for ductal dilation, or biliary stricture or evidence of chol edocholithiasis. The gallbladder is within normal limits. Pancreas: No ductal dilation. No evidence for solid mass. Spleen: Normal for size. Adrenal glands: Unremarkable. Kidneys: No evidence for obstructive uropathy. No suspicious renal masses. Stomach and Bowel: No evidence for bowel wall thickening or evidence for obstruction. Retroperitoneum/Peritoneum: No evidence of pneumoperitoneum or free fluid. Vasculature: No aortic aneurysm. Musculoskeletal: The osseous structures appear intact. Lymph Nodes: No gross evidence for lymphadenopathy. Abdominal wall: No. IMPRESSION: Hepatic segment 7 lesion with peripheral discontinuous progressive enhancement favored represent a he mangioma. Segment 4A lesion favored represent simple appearing cyst. No evidence for metastatic disea se at this time. [facility], , 04/22/2024 9:36 PM
== END | disposition home or self-care (01) ==
LOC: RADMRIMAIN 18:30
PROVIDERS: ATTEND Internal Medicine Hematology & Oncology
DX: K76.89 Other specified diseases of liver (principal); C50.412 Malignant neoplasm of upper-outer quadrant of left female breast
CPT/HCPCS: 74183; A9585

== ENCOUNTER → 2024-05-20 | Outpatient (CLI) | payer BC ==
--- NOTE | 2024-05-20 13:11 | CA ---
Transthoracic Echo Report Name: Paulina Candelario Age: 54 Gender: F : 1970 Exam Date: 05/20/2024 11:26 Exam Location: [place] [facility] Ht (in): 62 Wt (lb): 174 Ordering Physician: Gerber Mcmillan MD Attending/Referring Phys: Gerber Mcmillan MD Radio Station Manager Brigitte Traylor JEFF Procedure CPT: Indications: Z01.818 Chemo Cardiac Hx: Technical Quality: Fair Contrast 1: Total Dose (mL): Contrast 2: Total Dose (mL): MEASUREMENTS (Male / Female) Normal Values 2D ECHO LV Diastolic Diameter PLAX 4.9 cm 4.2 - 5.9 / 3.9 - 5.3 cm IVS Diastolic Thickness 0.9 cm 0.6 - 1.0 / 0.6 - 0.9 cm LVPW Diastolic Thickness 0.7 cm 0.6 - 1.0 / 0.6 - 0.9 cm LV Relative Wall Thickness 0.3 RV Internal Dim ED PLAX 3.4 cm LVOT Diameter 1.8 cm LV Diastolic Volume MOD BP 70.1 cm??? 67 - 155 / 56 - 104 cm??? LV Systolic Volume MOD BP 19.7 cm??? 22 - 58 / 19 - 49 cm??? LV Ejection Fraction MOD BP 71.9 % >= 55 % LV Cardiac Index MOD BP 1949.2 cm???/min???m??? LV Diastolic Volume MOD 4C 65.6 cm??? LV Systolic Volume MOD 4C 20.5 cm??? LV Ejection Fraction MOD 4C 68.7 % LV Cardiac Index MOD 4C 1741.7 cm???/min???m??? LV Diastolic Length 4C 7.2 cm LV Systolic Length 4C 5.4 cm LV Diastolic Volume MOD 2C 66.8 cm??? LV Systolic Volume MOD 2C 20.2 cm??? LV Ejection Fraction MOD 2C 69.8 % LV Cardiac Index MOD 2C 1801.5 cm???/min???m??? LV Diastolic Length 2C 6.3 cm LV Systolic Length 2C 5.3 cm DOPPLER LVOT Peak Velocity 109.0 cm/s LVOT Peak Gradient 4.8 mmHg LVOT Velocity Time Integral 18.5 cm LVOT Stroke Volume 48.8 cm??? LVOT Stroke Volume Index 27.1 ml/m??? LVOT Cardiac Index 1883.8 cm???/min???m??? MV Area PHT 4.9 cm??? Mitral E Point Velocity 63.9 cm/s Mitral A Point Velocity 76.0 cm/s Mitral E to A Ratio 0.8 MV Deceleration Time 156.1 ms FINDINGS Left Ventricle Normal Left ventricular size, wall thickness, systolic function with no obvious regional wall motion abnormalities. Normal Left ventricular diastolic filling pattern. Left ventricular ejection fraction is estimated at 55-60 %. Normal LV strain. GLPS Avg -19.3% Right Ventricle Normal right ventricular size and function. Right ventricular systolic pressure within normal limits. Right Atrium Normal right atrial size. Left Atrium Normal left atrial size. Mitral Valve Structurally normal mitral valve. No mitral stenosis, regurgitation or prolapse. Aortic Valve Trileaflet aortic valve. No aortic valve stenosis. Trace aortic regurgitation. Tricuspid Valve Structurally normal tricuspid valve. Trace to mild tricuspid regurgitation. Pulmonic Valve Structurally normal pulmonic valve. Pericardium No pericardial effusion. Aorta Normal size aortic root and proximal ascending aorta. CONCLUSIONS Normal LV systolic function with an ejection fraction of 60% Previewed by: Dr. Arnol Wilson MD (Electronically Signed) Final Date: 20 May 2024 13:10
== END | disposition home or self-care (01) ==
LOC: RADECHMAIN 11:27
PROVIDERS: ATTEND Internal Medicine Hematology & Oncology
DX: Z01.818 Encounter for other preprocedural examination (principal)
CPT/HCPCS: 93306

== ENCOUNTER → 2024-05-27 | Day surgery (SDC) | payer BC ==
[~2024-05-27] MED LIST: HYDROmorphone 0.5 MG/0.5 ML SYRINGE IVP PRN; LIDOCAINE 1% (10MG/ML) FOR IV START INTRADERMA PRN; LIDOCAINE 1% INJ 10MG/ML (20 ML MDV) ONE; MIDAZOLAM 2 MG/2 ML VIAL IV PRN; MIDAZOLAM 2 MG/2 ML VIAL ONE; NALOXONE 0.4 MG/ML 1 ML VIAL IV PRN; PROPOFOL 10 MG/ML 20 ML VIAL IV ONE; Pre Op ABX Message 1 EACH MISC MISCELLANE ONE; fentaNYL (PF) 50 MCG/ML 2 ML AMP IVP PRN; fentaNYL (PF) 50 MCG/ML 2 ML AMP ONE
[2024-05-27] MEDS: IV FLUID CONTINUATION 1,000 ML IV ONE (08:59)
[2024-05-27] MEDS: DEXAMETHASONE SOD PHOSPHATE 4 MG/ML 1 ML VIAL IV ONE (09:15)
[2024-05-27] MEDS: HEPARIN SODIUM,PORCINE 5,000 UNIT/ML 1 ML VIAL SQ PRN (09:15)
[2024-05-27] MEDS: ACETAMINOPHEN TAB 500 MG TAB PO PRN (09:15)
[2024-05-27] MEDS: ONDANSETRON 4 MG/2 ML VIAL IVP ONE (09:16)
[2024-05-27] MEDS: LACTATED RINGERS 1,000 ML IV SCH (09:17)
--- NOTE | 2024-05-27 09:32 | P.GSHP ---
History of Present Illness H&P Date: 05/27/24 Chief Complaint: Left breast cancer 54-year-old female here today for Port-A-Cath placement. Patient was recently diagnosed with left-sided breast cancer 2 sites. Patient is leaning towards bilateral mastectomy at this time. Starting chemotherapy next Thursday for HER2 positive breast cancer. Past Medical History Past Medical History: COPD Additional Past Medical History / Comment(s): endometriosis, kidney infection. Fibromyalgia 2019 History of Any Multi-Drug Resistant Organisms: None Reported Past Surgical History: Breast Surgery Additional Past Surgical History / Comment(s): benign excisional biopsy right breast 1991, laproscopy surgery. septic from perianal cyst surgery 2023. colonoscopy Past Anesthesia/Blood Transfusion Reactions: Previous Problems w/ Anesthesia Additional Past Anesthesia/Blood Transfusion Reaction / Comment(s): "Hard time waking up" after breast excisional biopsy 1991 Smoking Status: Current every day smoker Additional Past Alcohol Use History / Comment(s): smokes approx 10 cigs daily Medications and Allergies Home Medications Medication Instructions Recorded Confirmed Type Fexofenadine/Pseudoephedrine 600 mg PO BID PRN 10/23/17 05/27/24 History [Danyelle-D 12 Hour Tablet] Amitriptyline HCl 25 mg PO HS 03/11/24 05/27/24 History Naltrexone HCl [Lotrexone] 3 mg PO HS 03/11/24 05/27/24 History Allergies Allergy/AdvReac Type Severity Reaction Status Date / Time Sulfa (Sulfonamide Allergy Unknown Verified 05/27/24 08:55 Antibiotics) Childhood gluten AdvReac Nausea & Verified 05/27/24 08:55 Vomiting & Diarrhea hydrocodone [From Vicodin] AdvReac Nausea Verified 05/27/24 08:55 morphine AdvReac Nausea Verified 05/27/24 08:55 spironolactone AdvReac weakness,fa Verified 05/27/24 08:55 tigue,heada ches Surgical - Exam Vital Signs Temp Pulse Resp BP Pulse Ox 97.1 F L 73 18 111/75 95 05/27/24 08:54 05/27/24 08:54 05/27/24 08:54 05/27/24 08:54 05/27/24 08:54 Physical exam: General: Well-developed, well-nourished HEENT: Normocephalic, sclerae nonicteric Abdomen: Nontender, nondistended Extremities: No edema Neuro: Alert and oriented Assessment and Plan (1) Breast cancer, left Narrative/Plan: Will proceed with Port-A-Cath at this time. Risks of bleeding, infection, DVT, pneumothorax, catheter malfunction, anesthesia related complications were discussed. The patient understands and wishes to proceed. Current Visit: Yes Status: Acute Code(s): C50.912 - MALIGNANT NEOPLASM OF UNSPECIFIED SITE OF LEFT FEMALE BREAST SNOMED Code(s): 647834585
[2024-05-27] MEDS: ceFAZolin 1,000 MG VIAL IVPB ONE (09:35)
[2024-05-27] MEDS: LIDOCAINE 1% INJ 10MG/ML (20 ML MDV) SQ ONE ×2 (09:54)
--- NOTE | 2024-05-27 10:22 | FL ---
EXAMINATION TYPE: FL guided central line placemt DATE OF EXAM: 05/27/2024 CLINICAL INDICATION: Female, 54 years old with history of PORTACATH PLACEMENT, TECHNIQUE: Fluoroscopy. COMPARISON: None. FINDINGS: Fluoroscopic guidance was provided during Port-A-Cath insertion procedure performed by Dr. Correa. A total of 7.8 seconds of fluoroscopic time was utilized during the procedure and 1 spot jerry ge is acquired. Images acquired shows portion of the catheter terminating near the level of SVC. TOTAL DAP = 0.1541 Gycm2. IMPRESSION: As Above. [facility], , 05/27/2024 10:19 AM
--- NOTE | 2024-05-27 10:26 | P.OP ---
Date of Procedure: 05/27/24 Procedure(s) Performed: PREOPERATIVE DIAGNOSIS: Left breast cancer POSTOPERATIVE DIAGNOSIS: Same PROCEDURE: Port-A-Cath placement with fluoroscopic and ultrasound guidance SURGEON: Sunny EBL: Minimal ANESTHESIA: 5 cc COMPLICATIONS: None OPERATIVE PROCEDURE: Patient was brought and placed on the operative table in the supine position. The patient was placed under general anesthesia at that time. The chest and neck were prepped and draped in usual sterile fashion. The ultrasound probe was used to identify the location of the right internal jugular vein. The skin was localized with lidocaine. The Seldinger needle was advanced into the IJ under ultrasound guidance. The wire was advanced through the needle under fluoroscopic guidance into the superior vena cava. A port pocket was created in the right infraclavicular location. The catheter was tunneled from the wire entrance site to the port pocket. The port was then connected to the catheter. The dilator introducer was threaded over the guidewire. The guidewire and dilator were then removed. The catheter was advanced through the introducer and introducer was then removed. The tip was seen to be in the right atrial junction via fluoroscopy. A picture of the radiograph showing the tip of the catheter was taken. Port was flushed with both saline and a Hep-Lock solution. There was good flow both in and out of the port. The port was sutured in underlying tissues using 3-0 silk sutures. The subcutaneous tissues were reapproximated using 3-0 Vicryl sutures and the skin at both locations using 4-0 Monocryl sutures. Skin glue and sterile dressings then applied. DISPOSITION: Stable to recovery room
[2024-05-27 10:32] VITALS: TEMP 97
--- NOTE | 2024-05-27 10:54 | XR ---
EXAMINATION TYPE: XR chest 1V confirm line [facility] DATE OF EXAM: 05/27/2024 CLINICAL INDICATION: Female, 54 years old with history of Check Line, TECHNIQUE: Single frontal view of the chest is obtained. COMPARISON: CT April 15, 2024 FINDINGS: There is new right internal jugular Mediport catheter terminating in SVC. No pneumothorax after catheter placement. Lungs remain clear. The cardiac silhouette size is upper limits of normal. The osseous structures are intact. IMPRESSION: As above. [facility], , 05/27/2024 10:51 AM
[2024-05-27] MEDS: traMADol 50 MG TAB PO PRN (11:20)
[2024-05-27 11:46] VITALS: BP 124/85; PULSE 74; RESP 18
== END ==
LOC: OR 08:36
PROVIDERS: ATTEND Surgery
DX: C50.912 Malignant neoplasm of unspecified site of left female breast (principal); J44.9 Chronic obstructive pulmonary disease, unspecified; K21.9 Gastro-esophageal reflux disease without esophagitis; F41.9 Anxiety disorder, unspecified; F32.A Depression, unspecified; M79.7 Fibromyalgia; Z87.891 Personal history of nicotine dependence; Z45.2 Encounter for adjustment and management of vascular access device; Z88.2 Allergy status to sulfonamides; Z88.1 Allergy status to other antibiotic agents; Z88.5 Allergy status to narcotic agent; Z79.899 Other long term (current) drug therapy
CPT/HCPCS: 77001; 36561; C1788; J2250; J1644; J1100; J2405; J0690; J2003; J3010; J1642; J2704

== ENCOUNTER → 2024-08-03 | Outpatient (CLI) | payer BC ==
--- NOTE | 2024-08-03 19:00 | CA ---
Transthoracic Echo Report Name: Paulina Candelario Age: 54 Gender: F : 1970 Exam Date: 08/03/2024 16:25 Exam Location: [place] [facility] Ht (in): 62 Wt (lb): 175 Ordering Physician: Gerber Mcmillan MD Attending/Referring Phys: Gerber Mcmillan MD Button Facing Machine Operator Joyce Alvarado, [facility] Procedure CPT: Indications: Z01.818 ENCOUNTER FOR OTHER PREPROCEDURAL EXAMINAT Cardiac Hx: Technical Quality: Good Contrast 1: Total Dose (mL): Contrast 2: Total Dose (mL): MEASUREMENTS (Male / Female) Normal Values 2D ECHO LV Diastolic Diameter PLAX 4.2 cm 4.2 - 5.9 / 3.9 - 5.3 cm LV Systolic Diameter PLAX 3.2 cm IVS Diastolic Thickness 1.0 cm 0.6 - 1.0 / 0.6 - 0.9 cm LVPW Diastolic Thickness 1.0 cm 0.6 - 1.0 / 0.6 - 0.9 cm LV Relative Wall Thickness 0.5 RV Internal Dim ED PLAX 2.9 cm LA Systolic Diameter LX 3.7 cm 3.0 - 4.0 / 2.7 - 3.8 cm M-MODE Aortic Root Diameter MM 2.7 cm LA Systolic Diameter MM 2.0 cm LA Ao Ratio MM 0.8 DOPPLER AV Peak Velocity 163.4 cm/s AV Peak Gradient 10.7 mmHg Mitral E Point Velocity 96.1 cm/s Mitral A Point Velocity 92.3 cm/s Mitral E to A Ratio 1.0 MV Deceleration Time 278.6 ms MV E' Velocity 10.1 cm/s Mitral E to MV E' Ratio 9.5 TR Peak Velocity 242.2 cm/s TR Peak Gradient 23.5 mmHg Right Ventricular Systolic Press 33.5 mmHg FINDINGS Left Ventricle Left ventricular ejection fraction is estimated at 55-60 %. Left ventricular cavity size normal. No obvious regional wall motion abnormalities. Average GL PS -17.7% Right Ventricle Normal right ventricular size. Right ventricle at upper limits of normal. Right Atrium Normal right atrial size. No right atrial thrombus or mass seen. Left Atrium Normal left atrial size. No left atrial thrombus or mass present. Mitral Valve Structurally normal mitral valve. No mitral stenosis, or prolapse. Trace mitral regurgitation Aortic Valve Trileaflet aortic valve. No aortic valve stenosis or regurgitation. Tricuspid Valve Structurally normal tricuspid valve. Mild tricuspid regurgitation. Pulmonic Valve Structurally normal pulmonic valve. No pulmonic regurgitation. Pericardium No pericardial effusion. Aorta Normal size aortic root and proximal ascending aorta. CONCLUSIONS 1. Normal left ventricular size and systolic function 2. Average GL PS -17.7% 3. Mild tricuspid regurgitation with no evidence of pulmonary hypertension Previewed by: Dr. Everardo Cooper MD (Electronically Signed) Final Date: 03 August 2024 18:59
== END | disposition home or self-care (01) ==
LOC: RADECHMAIN 16:14
PROVIDERS: ATTEND Internal Medicine Hematology & Oncology
DX: Z01.818 Encounter for other preprocedural examination (principal); C50.412 Malignant neoplasm of upper-outer quadrant of left female breast; I08.1 Rheumatic disorders of both mitral and tricuspid valves; K58.9 Irritable bowel syndrome, unspecified; N80.9 Endometriosis, unspecified; R51.9 Headache, unspecified; I10 Essential (primary) hypertension
CPT/HCPCS: 93306